=== PATIENT | male | born 1985 | race Caucasian/White ===

== ENCOUNTER 2017-02-22 13:33 | Inpatient (IN) | payer MEDICAID, OTHER ==
[2017-02-23] MEDS ORDERED: MAGNESIUM HYDROXIDE 30 ML UDCUP PO PRN (18:30)
[2017-02-23] MEDS ORDERED: ACETAMINOPHEN 325 MG TAB PO PRN (18:30)
[2017-02-23] MEDS ORDERED: NICOTINE POLACRILEX 2 MG GUM B PRN (18:30)
[2017-02-23] MEDS ORDERED: MAG HYDROX/AL HYDROX/SIMETH 30 ML UDCUP PO PRN (18:30)
--- NOTE | 2017-02-23 18:53 | PDCONSULT ---
Route Inspector Note: Full dictated report to follow tomarrow. Met with Pt for 60 minutes, reviewed his chart from [facility] and consulted with his RN. Reviewed H and P, EKG and labs from [facility]. Reviewed Dr Hassan's first opinion letter and appreciate, per his note, that pts outpt provider, Sophie Martínez NP agrees with ECT. Pt dealing with treatment resistant, severe Bipolar I depression with anhedonia , apathy, anergia, hypersomnia, anorexia, psychomotor slowing, blunting of affect, impov speech, hopelessnss and serious SI, with recent, near lethat OD on tylenol with ICU stay. Not responding to aggressive polypharmacy including LI, LMT, Vraylar. COuld not tolerate seroquel. His acuity and treatment resistance translate to the need for the more robust and expedient effects of ECT. Selene Angel, RN provided psychoed to , wicho re need for 24/7 supervision for any part of acute phase done as outpt. Will check some "organic labs". Pt denies THC and opiate use, despite UDS results. Went through consenting process fully including R/B/As. Pt aware of mortality risk, nuisance SEs and cognitive impact of ECT (will detail more in dictated report). He is able to provide meaningful consent and wishes to start RUL ECT tomorrow. We will hold Li for duration of acute phase and reduce LMT to 50-100 mg. He does not wish prn. Will keep vraylar (if pt brought his own, or MD may be able to provide samples) and doxepin for sleep.
[2017-02-23 20:58] LABS: HEMOGLOBIN A1C 5.2 % (4.0-6.0)
[2017-02-23] MEDS ORDERED: lamoTRIgine 100 MG TAB PO SCH (21:00)
[2017-02-23] MEDS: DOXEPIN HCL 10 MG CAP PO SCH (21:23)
[2017-02-24] MEDS ORDERED: NS 1,000 ML IV ONE (04:00)
[2017-02-24] MEDS ORDERED: LIDOCAINE 2% 5 ML SDV ID ONE (04:00)
[2017-02-24] MEDS ORDERED: CITRIC ACID/SODIUM CITRATE 30 ML UDCUP PO ONE (04:00)
[2017-02-24] MEDS ORDERED: ONDANSETRON DISINTEGRATING 4 MG TAB PO ONE (04:00)
[2017-02-24] MEDS ORDERED: fentaNYL 100 MCG/2 ML INJ ONE (06:02)
[2017-02-24] MEDS ORDERED: GLYCOPYRROLATE 0.2 MG/1 ML VIAL ONE (06:03)
[2017-02-24] MEDS ORDERED: ONDANSETRON 4 MG/2 ML VIAL ONE (06:03)
[2017-02-24] MEDS ORDERED: ETOMIDATE 20 MG/10 ML VIAL ONE (06:03)
[2017-02-24] MEDS ORDERED: MIDAZOLAM 2 MG/2 ML VIAL ONE (06:03)
[2017-02-24] MEDS ORDERED: KETOROLAC 30 MG/1 ML SDV ONE (06:03)
[2017-02-24] MEDS ORDERED: SUCCINYLCHOLINE CHLORIDE 200 MG/10 ML VIAL ONE (06:04)
[2017-02-24] MEDS ORDERED: ROCURONIUM 50 MG/5 ML VIAL ONE (06:04)
[2017-02-24 08:16] LABS: HIGHLY SENSITIVE CRP 3.5 mg/L
[2017-02-24] MEDS ORDERED: CARIPRAZINE 3 MG PO SCH (09:00)
[2017-02-24] MEDS ORDERED: CHOLECALCIFEROL VIT D3 1,000 UNITS TAB PO SCH (09:00)
--- NOTE | 2017-02-24 10:14 | BAPA ---
[f rep st] ADMISSION PSYCHIATRIC ASSESSMENT IDENTIFYING DATA: The patient is a 31-year-old white male, presently living with his an d 4 children. He was referred from [facility] by psychiatrist Berhane Hassan MD, who is referring h for electroconvulsive therapy. His outpatient psychiatric provider is Sophie Farrar NP, who also endorses this treatment for this patient. 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 He has a few recent psychiatric hospitalizati ons. Source of information includes the patient himself, who is a fairly good historian, as well as review of his chart notes from [facility] and the first opinion letter from Dr. Hassan. HISTORY OF PRESENT ILLNESS: This patient has a long history of bipolar 1 illness that started in his late teens, and has been punctuated mostly with severe manic episodes requiring hospitalizations and some fairly sustained periods of euthymia, as well. He had historically rarely gotten depressed. [facility] this summer he was clearly in a manic state, and then for the first time crashed into a profo und depression, leading to this present state. He had 1 very serious suicide attempt recently, attem pting to overdose with Tylenol and ended up in the ICU. He thankfully has no lasting hepatotoxicity. He had other plans to kill himself in violent ways. His present symptoms include anergia, amotivat ion, anhedonia, hypersomnia, loss of appetite with weight loss, Nihilistic rumination, psychomotor sl owing, poor concentration and short-term memory, hopelessness and ultimately suicidal ideation with o ngoing intent. He does state he was able to remain safe while inpatient, but his corroborates t hat he would not be safe presently as an outpatient. He denies any dali psychotic symptoms. There is no significant mixed symptomatology at this point as well. PRESENT MEDICATIONS: Include: Vraylar 3 mg q.a.m., doxepin 10 mg p.o. q.h.s., Lamictal 100 mg p.o. b.i.d., and lithium ER 300 mg in the morning and 600 mg at h.s. He felt he had some partial success from the Vraylar, but his insurance would not cover it, so his compliance with the medication was patricia dequate. He had been restarted on this medication, nonetheless, while at [facility]. Labs, EKG, and history and physical were done at [facility] and provide no relative contraindicat ions to proceeding with ECT. Of note, his urine drug screen showed positive THC and opiates, which t he patient adamantly denied were true as he has never used those substances. There is no alcohol mis use that could be contributing to this present depression. He has not had thyroid tested in a while. PAST PSYCHIATRIC HISTORY,: The patient had his first manic episode at 17 years old. He has gone thr ough long periods of time euthymic without even medications, such as from 2008 through approximately 4 months ago. He has never needed to be on antidepressants as stated originally, or stated in the HP as he hardly has had depressive episodes in the past. Other medications tried have included Abilify and Seroquel. The patient has also filled out a list of all medications tried previously, which daljit l be in his chart. PAST MEDICAL HISTORY: The patient suffers with mild back pain. Otherwise, he has no cardiac or pulm onary issues. No neurologic issues such as closed head injury with loss of consciousness, stroke or TIA. No focal neurologic symptoms or paresthesias. He does have 1 area of numbness on his right hema ek that he notes has been there ever since his Tylenol overdose. He has no known drug allergies. No history of known sleep apnea or GERD. His vitamin D level just tested was low at 18. Hemoglobin A1 c was 5.2, and highly sensitive C-reactive protein was mildly high at 3.5. ALCOHOL AND DRUG HISTORY: The patient admits to rare use of alcohol, but no other illicit substances . FAMILY HISTORY: The patient does have a sister with bipolar illness. There is also a family history of anxiety symptoms. A sister also has illicit substance use. No family history of completed suici de. 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 There is also the economic stressors around his family to t he point where he is unable to pay for medication that has been at least partially helpful. He smoke s 1 pack per day since he was 14 years old. MENTAL STATUS EXAM: The patient is a 31-year-old white male, who appears stated age. He is pleasant and cooperative although quite blunted in affect, quiet and impoverished in speech, which is also mo notone. He makes decent eye contact. His hygiene and grooming are fair and consistent with having blanquita kay transferred from another inpatient setting. His affect is appropriate and congruent with mood, w jorge ah is highly depressed. Thought processes are goal directed. Thought content is positive for suic idal ideation with ongoing intent and significant hopelessness, as well as nihilistic, self-deprecati ng, and guilt ridden rumination. He denies auditory or visual hallucinations, paranoia, somatic delu sions, grandiosity, or delusional degree of nihilism. He is alert and oriented x3 with subjective im pairment in attention, concentration and focus. He is of average intelligence based on vocabulary, a nd educational attainment. Judgment and insight are impaired by virtue of his profound depression, a nd insight is fair. ADMITTING DIAGNOSIS: Anthony I: Bipolar 1 disorder, depressed, severe. Anthony II: Defer. Anthony III: Low vitamin D, back pain. Anthony IV: Moderate. Anthony V: 35. IMPRESSION/RECOMMENDATIONS: I agree with Dr. Hassan and Sophie Farrar that this patient is suffering wi th a significant episode of bipolar depression that is proving refractory to aggressive and appropria te medication management, and has ongoing severe acuity in the form of suicidal ideation with intent. He has a recent very severe suicide attempt. Without more aggressive remediation of his depression , his present episode may indeed prove lethal. Hence ECT is quite appropriate for him at this time. In terms of medication management, we will need to stop his lithium going into treatment and reduce Lamictal with the intent to restart both at his usual doses upon completion of the acute phase. One medication option for the future that may be tried for this patient, but like Vraylar may be poorly c overed by his insurance, would be Latuda given its FDA approval in bipolar depression. I would le nue to avoid antidepressants in a patient who has predominant manic component to his bipolar illness. Bright light therapy used in the new protocol for bipolar depression may be useful to implement in the future if need be. Otherwise, the patient was given extensive verbal, written, and Internet-based references in the serv ice of providing psychoeducation about ECT and its risks, benefits and alternatives. We discussed APA based guidelines for being a candidate for this procedure including factors such as acuity, treatment resistance, patient preference, the risk of inaction or inadequate action, (i.e. mo rbidity or mortality from suicidality if under treated). Alternative treatments such as further med trials, TMS, or psychotherapies were discussed. STAR*D da ta was used to inform this medical decision making process comparing relative remission rates with fu rther med trials in a treatment resistant cohort with remission and response rates using ECT in treat ment resistant depression. The risks were highlighted, including mortality from anesthesia, SC, arrhythmia, or CVA. Common nuis ance side effects were discussed including headache, nausea, jaw pain, and muscle aches. Cognitive side effects were discussed extensively, both verbally and with written handout. This incl uded the potential for anterograde and retrograde amnesia, transient delirium, "hypofrontality" with abulia and slowed processing speed, a sense of derealization or depersonalization. "State dependent" memory issues were discussed as a form of remote memory effect that may be more function of one's claudy y improvement than the side effect of ECT itself. Again, all these risks and side effects were paty vero against the risks using alternative or status quo treatment. We discussed right unilateral versus bilateral ECT, and the pros and cons of trying ketamine as anest hetic agent with its putative antidepressant effects and reduction of cognitive side effects. Ketami ne has increased nausea, longer sedative effect post ECT, and simply the unknown of using it 3 times a week. I suggest we do not start with ketamine, but rather hold off until such time as it may prove necessary if there is a plateauing of treatment effect. Treatment course is 6-18 ECT treatments done 3 times per week. He understands that right unilateral treatments will take longer to complete than bilateral, and up to 50% of our patients who start with unilateral switch at some point to bilateral due to inadequate or slow response. It was our choice a lso to start with unilateral in this patient. Maintenance ECT was discussed as beneficial to reduce relapse risk when used with medications, rather than either modality alone or of course neither modality given its 85% relapse risk in the 3 months following acute ECT and those who responded initially. We discussed the need for outpatient supervision once discharged if the patient is still receiving ac hemalatha ECT at that time, and for up to 2 weeks beyond that. He is not to drive either and he must allow his medications to be managed by his loved ones. The patient was given a list of resources in our c linic including the name and number of Selene Churchill RN, who will provide logistics about treatment fo r him and family. He also knows about Sheila Ontiveros, a therapist, who provides supportive care for pa tients and family members. All the above was accomplished using language understood to patient and family with ample opportunity given to answer questions and express concerns. It was encouraged that after reviewing the written information given, that they consult with me if they wish further discussion. /[id number]/MODL
[2017-02-24] MEDS ORDERED: ONDANSETRON DISINTEGRATING 4 MG TAB ONE ×2 (12:24→13:43)
[2017-02-24] MEDS ORDERED: CITRIC ACID/SODIUM CITRATE 30 ML UDCUP ONE (12:25)
[2017-02-24] MEDS ORDERED: HYDROCODONE/APAP 5/325 TAB PO PRN (13:00)
[2017-02-24] MEDS ORDERED: PROMETHAZINE HCL 25 MG TAB PO PRN (13:00)
[2017-02-24] MEDS ORDERED: ONDANSETRON DISINTEGRATING 4 MG TAB PO PRN (13:00)
[2017-02-24] MEDS ORDERED: IBUPROFEN 600 MG TAB PO PRN (13:00)
[2017-02-24] MEDS ORDERED: HYDROCODONE/APAP 5/325 TAB ONE (13:43)
[2017-02-24] MEDS: CHOLECALCIFEROL VIT D3 2,000 UNITS TAB/CAP PO SCH (14:28)
[2017-02-24] MEDS: lamoTRIgine 100 MG TAB PO SCH (20:23)
[2017-02-24] MEDS: DOXEPIN HCL 10 MG CAP PO SCH (20:23)
[2017-02-25] MEDS: CHOLECALCIFEROL VIT D3 2,000 UNITS TAB/CAP PO SCH (08:30)
[2017-02-25] MEDS: CARIPRAZINE 3 MG PO SCH (08:31)
[2017-02-25] MEDS ORDERED: CARIPRAZINE 3 MG PO SCH (09:00)
--- NOTE | 2017-02-25 15:25 | SOAPPROG ---
SOAP Progress Note Assessment/Plan: Assessment: Bipolar I, depressed, severe Plan: 02/25/17 15:19 Pt interviewed while in bed in middle of afternoon, resting, isolating. Had minimal DICKEY and nausea.No muscle pain/jaw pain. [place] a transient lift of his mood. However, he is back to feeling dyphoric, hopeless and with SI today. Restless sleep. Poor appetite. PMR. Impov speech, blunted affect, No psychosis. Tolerating med changes without discernable SEs. Plan to cont acute RUL ECT while inpt for now. Pt still represents a real and imminent risk for self harm Objective: Vital Signs Temp Pulse Resp BP Pulse Ox 36.9 C 64 14 111/53 L 96 02/25/17 06:00 02/25/17 06:00 02/25/17 06:00 02/25/17 06:00 02/25/17 06:00 ICD10 Worksheet Patient Problems: Problems Problem Status Onset Bipolar 1 disorder, depressed, severe Acute
[2017-02-25] MEDS: DOXEPIN HCL 10 MG CAP PO SCH (17:22)
[2017-02-25] MEDS: lamoTRIgine 100 MG TAB PO SCH (17:22)
--- NOTE | 2017-02-25 18:27 | BCON ---
[f rep ] BEHAVIORAL HEALTH CONSULTATION INTERNAL MEDICINE CONSULTATION DATE OF CONSULTATION: 02/25/2017 REFERRING PHYSICIAN: Dr. Stauffer REASON FOR REFERRAL: Medical clearance for inpatient behavioral health stay. HISTORY OF PRESENT ILLNESS: This patient had a recent suicide attempt earlier this month. He had a hospitalization at [facility] and due to inadequate response to therapies there, he was transferred to [facility] for electroconvulsive therapy. He currently has no acute complaints. PAST MEDICAL HISTORY: Bipolar disorder. PAST SURGICAL HISTORY: He reports wisdom teeth extraction. MEDICATIONS: Prior to admission: 1. Lamotrigine 100 mg p.o. twice daily. 2. Tracy 600 mg p.o. daily at 1800. 3. Cariprazine 3 mg p.o. daily. 4. Tracy 300 mg daily in the morning. 5. Doxepin 10 mg p.o. at bedtime. ALLERGIES: There are no known drug allergies. SOCIAL HISTORY: He is . He lives with his and 4 children. He is a home care nurse. He is a tobacco smoker. FAMILY HISTORY: He reports his father has prediabetes and a sister has bipolar disorder. REVIEW OF SYSTEMS: He reports he had a reduced appetite and also had nausea and vomiting over the past several weeks. The appetite issues were related to depression, and the nausea and vomiting due to an overdose on Tylenol PM, for which he was hospitalized. These symptoms have resolved. He now has a normal appetite and no nausea or vomiting. No constipation or diarrhea. He is not in pain. He has no cough. He has no dyspnea. Otherwise, a 10-point review of systems is negative. PHYSICAL EXAM: VITAL SIGNS: Blood pressure is 111/53, heart rate is 64, respiratory rate is 14, oxygen saturation 96%. Temperature is 36.9 degrees centigrade. His weight is 88.5 kg for a body mass index of 24.4. GENERAL: This is a well-nourished, well-developed man, resting in bed, cooperative, and in no acute distress. HEENT: Extraocular movements are intact. Pupils are equal, round, reactive to light. Mucous membranes are moist. Dentition is in good condition. NECK: Supple. HEART: Regular rate and rhythm with no murmurs , rubs, or gallops. LUNGS: Clear to auscultation bilaterally. ABDOMEN: Benign. EXTREMITIES: There is no cyanosis, clubbing, or edema. NEUROLOGIC: He is alert and oriented x3. Cranial nerves 2-12 are grossly intact. There is no focal weakness. Sensation is intact to light touch. LABORATORY STUDIES: Drawn at [facility] on 02/17/2017, revealed BMP overall within normal limits. Liver functions revealed a slightly elevated AST at 76. There was a lipid panel done which revealed an elevated LDL at 109. Laboratories drawn at [facility] showed a hemoglobin A1c of 5.2 , a CRP of 3.5, a B12 level of 498, and a vitamin D level of 18. ASSESSMENT/RECOMMENDATIONS: 1. Mental health issues, pending further evaluation per Psychiatry and the mental health team. 2. Tobacco dependence syndrome. He was encouraged regarding smoking cessation. 3. Dyslipidemia is mild. He is a smoker, however, with his young age and lack of hypertension, he would not meet criteria for initiation of a statin therapy. Encourage dietary compliance and increased exercise. 4. Vitamin D deficiency. He is getting vitamin D replacement as appropriate. I see no medical contraindications to this patient's continued stay on the inpatient behavioral health unit or to any psychiatric medications or procedures. Thank you very much for including me in the care of this patient. Please do not hesitate to contact me or the hospitalist service should there be need for further medical evaluation. /[id number]/MODL MTDD
[2017-02-26] MEDS ORDERED: LIDOCAINE 2% 5 ML SDV ID ONE (04:00)
[2017-02-26] MEDS ORDERED: ONDANSETRON DISINTEGRATING 4 MG TAB PO ONE (04:00)
[2017-02-26] MEDS ORDERED: NS 1,000 ML IV ONE (04:00)
[2017-02-26] MEDS ORDERED: CITRIC ACID/SODIUM CITRATE 30 ML UDCUP PO ONE (04:00)
[2017-02-26] MEDS ORDERED: MIDAZOLAM 2 MG/2 ML VIAL ONE (04:52)
[2017-02-26] MEDS ORDERED: fentaNYL 100 MCG/2 ML INJ ONE (04:52)
[2017-02-26] MEDS ORDERED: PROPOFOL 200 MG/20 ML VIAL ONE (04:53)
[2017-02-26] MEDS ORDERED: ROCURONIUM 50 MG/5 ML VIAL ONE (04:53)
[2017-02-26] MEDS ORDERED: KETOROLAC 30 MG/1 ML SDV ONE (04:53)
[2017-02-26] MEDS ORDERED: ETOMIDATE 20 MG/10 ML VIAL ONE (04:53)
[2017-02-26] MEDS ORDERED: SUCCINYLCHOLINE CHLORIDE 200 MG/10 ML VIAL ONE (04:53)
[2017-02-26] MEDS ORDERED: GLYCOPYRROLATE 0.2 MG/1 ML VIAL ONE (04:53)
[2017-02-26] MEDS ORDERED: ONDANSETRON 4 MG/2 ML VIAL ONE (04:53)
[2017-02-26] MEDS ORDERED: ONDANSETRON DISINTEGRATING 4 MG TAB ONE (07:14)
[2017-02-26] MEDS ORDERED: CITRIC ACID/SODIUM CITRATE 30 ML UDCUP ONE (07:14)
[2017-02-26] MEDS ORDERED: ONDANSETRON DISINTEGRATING 4 MG TAB PO PRN (07:23)
[2017-02-26] MEDS ORDERED: PROMETHAZINE HCL 25 MG TAB PO PRN (07:23)
[2017-02-26] MEDS ORDERED: HYDROCODONE/APAP 5/325 TAB PO PRN (07:23)
--- NOTE | 2017-02-26 07:50 | SOAPPROG ---
SOAP Progress Note Assessment/Plan: Assessment: Bipolar I, depressed, severe Plan: 02/25/17 15:19 Pt interviewed while in bed in middle of afternoon, resting, isolating. Had minimal DICKEY and nausea.No muscle pain/jaw pain. [place] a transient lift of his mood. However, he is back to feeling dyphoric, hopeless and with SI today. Restless sleep. Poor appetite. PMR. Impov speech, blunted affect, No psychosis. Tolerating med changes without discernable SEs. Plan to cont acute RUL ECT while inpt for now. Pt still represents a real and imminent risk for self harm 02/26/17 07:47 Pt interviewed prior to ECT today. He describes no change in mood status compared to yesterday. QIDS is however 2 points lower and our staff appreciates a small, objective change in affect that is positive. Will cont acute ECT. Will add propofol and increase IV zofran due to c/o of Nausea. Will utilize fiberous food, water and metamucil to address absence of bowel movement since admit. Objective: Vital Signs Temp Pulse Resp BP Pulse Ox 36.9 C 91 16 123/77 H 93 02/26/17 06:00 02/26/17 06:00 02/26/17 06:00 02/26/17 06:00 02/26/17 06:00 ICD10 Worksheet Patient Problems: Problems Problem Status Onset Bipolar 1 disorder, depressed, severe Acute
[2017-02-26] MEDS ORDERED: HYDROCODONE/APAP 5/325 TAB ONE (08:24)
[2017-02-26] MEDS: PSYLLIUM METAMUCIL 1 PKT PO SCH (10:25)
[2017-02-26] MEDS: CHOLECALCIFEROL VIT D3 2,000 UNITS TAB/CAP PO SCH (10:26)
[2017-02-26] MEDS: CARIPRAZINE 3 MG PO SCH (10:26)
[2017-02-26] MEDS: DOXEPIN HCL 10 MG CAP PO SCH (19:33)
[2017-02-26] MEDS: lamoTRIgine 100 MG TAB PO SCH (19:33)
[2017-02-27] MEDS: CHOLECALCIFEROL VIT D3 2,000 UNITS TAB/CAP PO SCH (10:00)
[2017-02-27] MEDS: PSYLLIUM METAMUCIL 1 PKT PO SCH (10:01)
[2017-02-27] MEDS: CARIPRAZINE 3 MG PO SCH (10:08)
--- NOTE | 2017-02-27 13:43 | SOAPPROG ---
SOAP Progress Note Assessment/Plan: Assessment: From Dr. Stauffer's note: Assessment: Bipolar I, depressed, severe Plan: 02/25/17 15:19 Pt interviewed while in bed in middle of afternoon, resting, isolating. Had minimal DICKEY and nausea.No muscle pain/jaw pain. [place] a transient lift of his mood. However, he is back to feeling dyphoric, hopeless and with SI today. Restless sleep. Poor appetite. PMR. Impov speech, blunted affect, No psychosis. Tolerating med changes without discernable SEs. Plan to cont acute RUL ECT while inpt for now. Pt still represents a real and imminent risk for self harm 02/26/17 07:47 Pt interviewed prior to ECT today. He describes no change in mood status compared to yesterday. QIDS is however 2 points lower and our staff appreciates a small, objective change in affect that is positive. Will cont acute ECT. Will add propofol and increase IV zofran due to c/o of Nausea. Will utilize fiberous food, water and metamucil to address absence of bowel movement since admit. 02/27/17 13:38 1. Patient presents with brighter affect than noted for past 2 days. 2. Patient c/o vomiting last night. He says this happened when he was at [facility] usually in evenings after his HS dose of meds. Asked patient to alert staff when he vomits, which he didn't do last night. 3. Will request hospitalist consult. Subjective: Met with patient, reviewed chart and d/w staff. Patient is lying in bed napping. He says he has been out of bed earlier. He denies any physical complaints, but says he vomited last night but did not tell staff until this AM. He says he vomited several times while at [facility] usually after taking his HS meds. He denies feeling sick or nauseous today. He says he feels "good" since ECT started, even though Dr. Stauffer noted patient reported feeling sad and depressed. Patient says he thinks his mood is improving. He denies any SI/ HI. Objective: Vital Signs Temp Pulse Resp BP Pulse Ox 36.8 C 71 12 120/62 94 02/27/17 06:00 02/27/17 06:00 02/27/17 06:00 02/27/17 06:00 02/27/17 06:00 MSE: Affect: Euthymic Mood: "Good" TP: Linear, goal-directed TC: Denies any SI/HI Insight/Judgment: Fair - Time Spent With Patient Time Spent With Patient: 20" - Pending Discharge Pending Discharge Within 24 Hours: No Pending Discharge Within 48 Hours: No ICD10 Worksheet Patient Problems: Problems Problem Status Onset Bipolar 1 disorder, depressed, severe Acute
[2017-02-27] MEDS: lamoTRIgine 100 MG TAB PO SCH (20:50)
[2017-02-27] MEDS: DOXEPIN HCL 10 MG CAP PO SCH (20:51)
[2017-02-28] MEDS ORDERED: BISACODYL 10 MG SUPP PR PRN (08:30)
[2017-02-28] MEDS ORDERED: POLYETHYLENE GLYCOL 3350 17 GM PKT PO PRN (08:30)
[2017-02-28] MEDS ORDERED: LACTULOSE 20 GM/30 ML UDCUP PO PRN (08:30)
[2017-02-28] MEDS ORDERED: MAGNESIUM HYDROXIDE 30 ML UDCUP PO PRN (08:30)
[2017-02-28] MEDS ORDERED: PROMETHAZINE HCL 25 MG TAB PO PRN (08:31)
[2017-02-28] MEDS ORDERED: ONDANSETRON DISINTEGRATING 4 MG TAB PO PRN (08:31)
[2017-02-28] MEDS: CHOLECALCIFEROL VIT D3 2,000 UNITS TAB/CAP PO SCH (08:41)
[2017-02-28] MEDS: PSYLLIUM METAMUCIL 1 PKT PO SCH (09:50)
[2017-02-28] MEDS: SENNOSIDES/DOCUSATE SODIUM TAB PO SCH ×2 (09:50→18:26)
[2017-02-28] MEDS: CARIPRAZINE 3 MG PO SCH (09:51)
--- NOTE | 2017-02-28 12:14 | SOAPPROG ---
SOAP Progress Note Assessment/Plan: Assessment: From Dr. Stauffer's note: Assessment: Bipolar I, depressed, severe Plan: 02/25/17 15:19 Pt interviewed while in bed in middle of afternoon, resting, isolating. Had minimal DICKEY and nausea.No muscle pain/jaw pain. [place] a transient lift of his mood. However, he is back to feeling dyphoric, hopeless and with SI today. Restless sleep. Poor appetite. PMR. Impov speech, blunted affect, No psychosis. Tolerating med changes without discernable SEs. Plan to cont acute RUL ECT while inpt for now. Pt still represents a real and imminent risk for self harm 02/26/17 07:47 Pt interviewed prior to ECT today. He describes no change in mood status compared to yesterday. QIDS is however 2 points lower and our staff appreciates a small, objective change in affect that is positive. Will cont acute ECT. Will add propofol and increase IV zofran due to c/o of Nausea. Will utilize fiberous food, water and metamucil to address absence of bowel movement since admit. 02/27/17 13:38 1. Patient presents with brighter affect than noted for past 2 days. 2. Patient c/o vomiting last night. He says this happened when he was at [facility] usually in evenings after his HS dose of meds. Asked patient to alert staff when he vomits, which he didn't do last night. 3. Will request hospitalist consult. 02/28/17 12:08 1. Appreciate hospitalist, Yoko Tapia, evaluating patient today for constipation and intermittent nighttime vomiting. Dr. Tapia prescribed stool softeners and laxatives PRN as well as Protonix for possible GERD. Patient says he has been treated for GERD in past but has not taken meds recently. 2. Patient feels more "depressed" today b/c "I want to get out of here." 3. CCM 4. ECT tomorrow Subjective: Met with patient, reviewed chart and d/w staff. Patient is dressed in street clothes, seated at his desk. He says he is "tired of being here" and says staying in hospital makes him feel "more depressed." However, when staff asked him to rate his depression prior to admission, he said it was an 8/10, and now it's a 06/05. Patient admits the ECT is "helping" but says "I still want to go home." Patient was seen by hospitalist today for constipation and vomiting. It' s likely that his N/V is related to GERD which he has been treated for in past. He was started on Protonix and anti-nausea meds. Objective: Vital Signs Temp Pulse Resp BP Pulse Ox 36.8 C 65 14 127/63 H 97 02/28/17 06:00 02/28/17 06:00 02/28/17 06:00 02/28/17 06:00 02/28/17 06:00 MSE: Affect: Flat Mood: "Depressed" TP: Linear, goal-directed TC: Denies SI/ HI, no AH/VH Insight/Judgment: Fair - Time Spent With Patient Time Spent With Patient: 20" - Pending Discharge Pending Discharge Within 24 Hours: No Pending Discharge Within 48 Hours: No ICD10 Worksheet Patient Problems: Problems Problem Status Onset Bipolar 1 disorder, depressed, severe Acute
[2017-02-28] MEDS: PANTOPRAZOLE SODIUM 40 MG TAB PO SCH ×2 (12:54→18:24)
--- NOTE | 2017-02-28 15:59 | HOSPPROG ---
Hospitalist Progress Note Assessment/Plan: Asked by Dr. Kessler to re-evaluate patient today regarding night time vomiting. Patient had near lethal tylenol overdose about 1 month ago at [facility], requiring ICU stay. Unclear if he was treated with NAC. Transferred to [facility] from outside psych facility for ECT. Since his overdose he has been experiencing night time vomiting. During the day he eats his meals just fine, without any nausea. He had loose stools after his overdose, but since arriving at [facility] he has been constipated. Last night he had a episode of chest pain, lasting less than an hour. He only gets this chest pain at night when he lies down. He doesn't feel any acid reflux. He also complains of right flank pain. A/P: * Vomiting qhs - I suspect he has an element of GERD, especially with his described postural chest pain. Will start him on empiric PPI and monitor for effect. * Constipation - will place him on bowel protocol. This may also help vomiting. * Chest pain - doubt cardiac. Suspect GI * Right flank pain - will check UA, but think pyelo is unlikely * Recent near lethal tylenol overdose - will recheck labs in am, including liver function Dr. Ray available tomorrow if any further follow-up required Objective: Vital Signs Temp Pulse Resp BP Pulse Ox 36.8 C 65 14 127/63 H 97 02/28/17 06:00 02/28/17 06:00 02/28/17 06:00 02/28/17 06:00 02/28/17 06:00 - Physical Exam Constitutional: no apparent distress, appears nourished, not in pain Cardiovascular: regular rate and rhythym, no murmur, rub, or gallop Respiratory: no respiratory distress, no rales or rhonchi, clear to auscultation Gastrointestinal: normoactive bowel sounds, soft, non-tender abdomen, no palpable masses Skin: no rashes or abrasions, no fluctuance, no induration Neurologic: AAOx3, sensation intact bilaterally Psychiatric: interacting appropriately, not anxious, not encephalopathic, thought process linear ICD10 Worksheet Patient Problems: Problems Problem Status Onset Bipolar 1 disorder, depressed, severe Acute
[2017-02-28] MEDS: DOXEPIN HCL 10 MG CAP PO SCH (18:24)
[2017-03-01] MEDS ORDERED: LIDOCAINE 2% 5 ML SDV ID ONE (04:00)
[2017-03-01] MEDS ORDERED: NS 1,000 ML IV ONE (04:00)
[2017-03-01] MEDS ORDERED: ONDANSETRON DISINTEGRATING 4 MG TAB PO ONE (04:00)
[2017-03-01] MEDS ORDERED: CITRIC ACID/SODIUM CITRATE 30 ML UDCUP PO ONE (04:00)
[2017-03-01] MEDS ORDERED: KETOROLAC 30 MG/1 ML SDV ONE (05:40)
[2017-03-01] MEDS ORDERED: ROCURONIUM 50 MG/5 ML VIAL ONE (05:40)
[2017-03-01] MEDS ORDERED: GLYCOPYRROLATE 0.2 MG/1 ML VIAL ONE (05:40)
[2017-03-01] MEDS ORDERED: ONDANSETRON 4 MG/2 ML VIAL ONE (05:40)
[2017-03-01] MEDS ORDERED: PROPOFOL 200 MG/20 ML VIAL ONE (05:40)
[2017-03-01] MEDS ORDERED: fentaNYL 100 MCG/2 ML INJ ONE (05:40)
[2017-03-01] MEDS ORDERED: SUCCINYLCHOLINE CHLORIDE 200 MG/10 ML VIAL ONE (05:40)
[2017-03-01] MEDS ORDERED: ETOMIDATE 20 MG/10 ML VIAL ONE (05:40)
[2017-03-01] MEDS ORDERED: MIDAZOLAM 2 MG/2 ML VIAL ONE (05:40)
[2017-03-01 07:42] LABS: % IMMATURE GRANULYOCYTES 0.8 % (0.0-1.1); ABSOLUTE IMMATURE GRANULOCYTES 0.06 10^3/uL (0.00-0.10); ADD DIFF? NO; ADD MORPH? NO; ADD SCAN? NO; ATYPICAL LYMPHOCYTE FLAG 0 (0-99); FRAGMENT RBC FLAG 0 (0-99); HEMATOCRIT 51.3 % (40.0-51.0); HEMOGLOBIN 17.2 g/dL (13.7-17.5); LEFT SHIFT FLG 10 (0-99); LIPEMIA HEMOLYSIS FLAG 80 (0-99); MEAN CELL HEMOGLOBIN 30.7 pg (27.9-34.1); MEAN CELL HEMOGLOBIN CONCENTR. 33.5 g/dL (32.4-36.7); MEAN CELL VOLUME 91.4 fL (81.5-99.8); MEAN PLATELET VOLUME 10.7 fL (8.7-11.7); PLATELET CLUMPS FLAG 0 (0-99); PLATELET COUNT 207 10^3/uL (150-400); RED BLOOD CELL COUNT 5.61 10^6/uL (4.40-6.38); RED CELL DISTRIBUTION WIDTH 12.6 % (11.5-15.2)
[2017-03-01 08:05] LABS: INR 0.94 (0.83-1.16); PROTIME(PATIENT) 12.8 SEC (12.0-15.0)
[2017-03-01 08:56] LABS: ALANINE AMINOTRANSFERASE 54 IU/L (21-72); ALKALINE PHOSPHATASE 90 IU/L (38-126); ANION GAP 15 mEq/L (8-16); ASPARTATE AMINOTRANSFERASE 25 IU/L (17-59); BILIRUBIN,TOTAL 0.5 mg/dL (0.1-1.4); BILIRUBIN-CONJUGATED 0.2 mg/dL (0.0-0.5); BILIRUBIN-UNCONJUGATED 0.3 mg/dL (0.0-1.1); CALCIUM 10.1 mg/dL (8.5-10.4); CARBON DIOXIDE 26 mEq/l (22-31); CHLORIDE 102 mEq/L (97-110); CREATININE 0.9 mg/dL (0.7-1.3); GLOMERULAR FILTRATION RATE > 60; GLUCOSE 83 mg/dL (70-100); POTASSIUM 4.8 mEq/L (3.5-5.2); SODIUM 143 mEq/L (134-144); TOTAL PROTEIN 6.8 g/dL (6.3-8.2)
[2017-03-01] MEDS ORDERED: ONDANSETRON DISINTEGRATING 4 MG TAB ONE (09:06)
[2017-03-01] MEDS ORDERED: CITRIC ACID/SODIUM CITRATE 30 ML UDCUP ONE (09:06)
[2017-03-01] MEDS ORDERED: PROMETHAZINE HCL 25 MG TAB PO PRN (10:06)
[2017-03-01] MEDS ORDERED: HYDROCODONE/APAP 5/325 TAB PO PRN (10:06)
--- NOTE | 2017-03-01 10:18 | SOAPPROG ---
SOAP Progress Note Assessment/Plan: Assessment: Bipolar I, depressed, severe Plan: 02/25/17 15:19 Pt interviewed while in bed in middle of afternoon, resting, isolating. Had minimal DICKEY and nausea.No muscle pain/jaw pain. [place] a transient lift of his mood. However, he is back to feeling dyphoric, hopeless and with SI today. Restless sleep. Poor appetite. PMR. Impov speech, blunted affect, No psychosis. Tolerating med changes without discernable SEs. Plan to cont acute RUL ECT while inpt for now. Pt still represents a real and imminent risk for self harm 02/26/17 07:47 Pt interviewed prior to ECT today. He describes no change in mood status compared to yesterday. QIDS is however 2 points lower and our staff appreciates a small, objective change in affect that is positive. Will cont acute ECT. Will add propofol and increase IV zofran due to c/o of Nausea. Will utilize fiberous food, water and metamucil to address absence of bowel movement since admit. 03/01/17 10:10 Reviewed weekend notes of MDs, hospitalist, CC, RNs. Reviewed labs. Spoke with patient and called , Zo, this am. Pt wishes to be discharged. His QIDS score is a bit lower and he is denying suicidal intent AT THIS TIME, but acknowledges that he really does not know whether he is feeling better, as he is in the artificial environment of the hospital milieu. furthermore states that "he does not sound any better...he's quiet and spending all his day in bed...". I will strongly recommend that we delay discharge at this time as his risk of self harm, prior to admission to [facility], was extremely high as evidenced by his near lethal SA. Indeed, over the weekend, the hospitalist had to intervene due to nocturnal emesis felt to possibly be a function of GI issues from his OD. Thankfully, the PPI Rx'ed is helping that symptom. 's observations and even intuition about him, and her degree of skepticism about his stated absence of SI, are important variables that should not be discounted. Objectively, pt remains quiet, impov in speech, with PMR, able to force smiles. Denies present SI, but acknowledges he does not know how he might feel outside hospital. Objective: Vital Signs Temp Pulse Resp BP Pulse Ox 36.9 C 89 16 109/61 97 03/01/17 06:00 03/01/17 06:00 03/01/17 06:00 03/01/17 06:00 03/01/17 06:00 Laboratory Results 03/01/17 06:20 03/01/17 06:20 PT 12.8 SEC (12.0-15.0) 03/01/17 06:20 INR 0.94 (0.83-1.16) 03/01/17 06:20 Laboratory Tests 02/23/17 02/23/17 03/01/17 19:50 19:50 06:20 Hgb 17.2 Hct 51.3 H Sodium Potassium Hemoglobin A1c 5.2 Total Bilirubin Conjugated Bilirubin Unconjugated Bilirubin AST ALT C-React Prot High Sens 3.5 Lipase 25-OH Vitamin D Total 18.0 L TSH 03/01/17 06:20 Hgb Hct Sodium 143 Potassium 4.8 Hemoglobin A1c Total Bilirubin 0.5 Conjugated Bilirubin 0.2 Unconjugated Bilirubin 0.3 AST 25 ALT 54 C-React Prot High Sens Lipase 70 25-OH Vitamin D Total TSH 2.150 ICD10 Worksheet Patient Problems: Problems Problem Status Onset Bipolar 1 disorder, depressed, severe Acute
[2017-03-01] MEDS: CHOLECALCIFEROL VIT D3 2,000 UNITS TAB/CAP PO SCH (12:10)
[2017-03-01] MEDS: PANTOPRAZOLE SODIUM 40 MG TAB PO SCH ×2 (12:11→20:01)
[2017-03-01] MEDS: CARIPRAZINE 3 MG PO SCH (12:11)
[2017-03-01] MEDS: PSYLLIUM METAMUCIL 1 PKT PO SCH (13:13)
[2017-03-01] MEDS: SENNOSIDES/DOCUSATE SODIUM TAB PO SCH ×2 (13:13→20:02)
[2017-03-01] MEDS: DOXEPIN HCL 10 MG CAP PO SCH (20:01)
[2017-03-01] MEDS: lamoTRIgine 100 MG TAB PO SCH (20:01)
[2017-03-02] MEDS: CARIPRAZINE 3 MG PO SCH (08:44)
[2017-03-02] MEDS: SENNOSIDES/DOCUSATE SODIUM TAB PO SCH ×2 (08:45→21:12)
[2017-03-02] MEDS: PSYLLIUM METAMUCIL 1 PKT PO SCH (08:45)
[2017-03-02] MEDS: PANTOPRAZOLE SODIUM 40 MG TAB PO SCH ×2 (08:46→21:15)
[2017-03-02] MEDS: CHOLECALCIFEROL VIT D3 2,000 UNITS TAB/CAP PO SCH (08:46)
--- NOTE | 2017-03-02 14:57 | SOAPPROG ---
SOAP Progress Note Assessment/Plan: Assessment: Bipolar I, depressed, severe Plan: 02/25/17 15:19 Pt interviewed while in bed in middle of afternoon, resting, isolating. Had minimal DICKEY and nausea.No muscle pain/jaw pain. [place] a transient lift of his mood. However, he is back to feeling dyphoric, hopeless and with SI today. Restless sleep. Poor appetite. PMR. Impov speech, blunted affect, No psychosis. Tolerating med changes without discernable SEs. Plan to cont acute RUL ECT while inpt for now. Pt still represents a real and imminent risk for self harm 02/26/17 07:47 Pt interviewed prior to ECT today. He describes no change in mood status compared to yesterday. QIDS is however 2 points lower and our staff appreciates a small, objective change in affect that is positive. Will cont acute ECT. Will add propofol and increase IV zofran due to c/o of Nausea. Will utilize fiberous food, water and metamucil to address absence of bowel movement since admit. 03/01/17 10:10 Reviewed weekend notes of MDs, hospitalist, CC, RNs. Reviewed labs. Spoke with patient and called , Zo, this am. Pt wishes to be discharged. His QIDS score is a bit lower and he is denying suicidal intent AT THIS TIME, but acknowledges that he really does not know whether he is feeling better, as he is in the artificial environment of the hospital milieu. furthermore states that "he does not sound any better...he's quiet and spending all his day in bed...". I will strongly recommend that we delay discharge at this time as his risk of self harm, prior to admission to [facility], was extremely high as evidenced by his near lethal SA. Indeed, over the weekend, the hospitalist had to intervene due to nocturnal emesis felt to possibly be a function of GI issues from his OD. Thankfully, the PPI Rx'ed is helping that symptom. 's observations and even intuition about him, and her degree of skepticism about his stated absence of SI, are important variables that should not be discounted. Objectively, pt remains quiet, impov in speech, with PMR, able to force smiles. Denies present SI, but acknowledges he does not know how he might feel outside hospital. 03/02/17 14:52 Met with pt, spoke with CC and RN. Pt feels subtle, at best, improvement in mood. Objectively, a bit brighter, slightly more verbal, better eye contact, and denies present SI. However, he feels hospital setting is artificial and not allowing his full appraisal of mood change. He does endorse some future orientation and I believe he is truthful in his denial of SI, but he has limited insight into how Bipolar depression can affect him, and how it can have some waxing and waning in its intensity, with the potential to return fairly quickly to a state in which he becomes suicidal. Hence, whenever he is d/c'ed, family member who will providing 19/10 supervision must be vigilant abou that and limit his access to any implements of self harm, including any meds, Rxed or OTC, firearms or sharps. No driving allowed either until at least two weeks after last acute ECT. Constipation is resolved as is nocturnal nausea. Objective: Vital Signs Temp Pulse Resp BP Pulse Ox 36.8 C 63 16 106/61 98 03/02/17 06:00 03/02/17 06:00 03/02/17 06:00 03/02/17 06:00 03/02/17 06:00 Laboratory Results 03/01/17 06:20 03/01/17 06:20 PT 12.8 SEC (12.0-15.0) 03/01/17 06:20 INR 0.94 (0.83-1.16) 03/01/17 06:20 ICD10 Worksheet Patient Problems: Problems Problem Status Onset Bipolar 1 disorder, depressed, severe Acute
[2017-03-02] MEDS: DOXEPIN HCL 10 MG CAP PO SCH (21:14)
[2017-03-03] MEDS ORDERED: LIDOCAINE 2% 5 ML SDV ID ONE (04:00)
[2017-03-03] MEDS ORDERED: ONDANSETRON DISINTEGRATING 4 MG TAB PO ONE (04:00)
[2017-03-03] MEDS ORDERED: CITRIC ACID/SODIUM CITRATE 30 ML UDCUP PO ONE (04:00)
[2017-03-03] MEDS ORDERED: NS 1,000 ML IV ONE (04:00)
[2017-03-03] MEDS ORDERED: fentaNYL 100 MCG/2 ML INJ ONE (05:27)
[2017-03-03] MEDS ORDERED: ONDANSETRON 4 MG/2 ML VIAL ONE (05:27)
[2017-03-03] MEDS ORDERED: PROPOFOL 200 MG/20 ML VIAL ONE (05:27)
[2017-03-03] MEDS ORDERED: GLYCOPYRROLATE 0.2 MG/1 ML VIAL ONE (05:27)
[2017-03-03] MEDS ORDERED: ETOMIDATE 20 MG/10 ML VIAL ONE (05:27)
[2017-03-03] MEDS ORDERED: KETOROLAC 30 MG/1 ML SDV ONE (05:27)
[2017-03-03] MEDS ORDERED: MIDAZOLAM 2 MG/2 ML VIAL ONE (05:27)
[2017-03-03] MEDS ORDERED: ROCURONIUM 50 MG/5 ML VIAL ONE (05:27)
[2017-03-03] MEDS ORDERED: SUCCINYLCHOLINE CHLORIDE 200 MG/10 ML VIAL ONE (05:28)
[2017-03-03] MEDS: CHOLECALCIFEROL VIT D3 2,000 UNITS TAB/CAP PO SCH ×2 (07:41→13:22)
[2017-03-03] MEDS: PSYLLIUM METAMUCIL 1 PKT PO SCH (07:42)
[2017-03-03] MEDS: PANTOPRAZOLE SODIUM 40 MG TAB PO SCH ×3 (07:42→20:54)
[2017-03-03] MEDS: SENNOSIDES/DOCUSATE SODIUM TAB PO SCH ×2 (07:43→20:56)
[2017-03-03] MEDS: CARIPRAZINE 3 MG PO SCH ×2 (07:43→13:23)
[2017-03-03] MEDS ORDERED: HYDROCODONE/APAP 5/325 TAB PO PRN (11:59)
--- NOTE | 2017-03-03 13:27 | SOAPPROG ---
SOAP Progress Note Assessment/Plan: Assessment: Bipolar I, depressed, severe Plan: 02/25/17 15:19 Pt interviewed while in bed in middle of afternoon, resting, isolating. Had minimal DICKEY and nausea.No muscle pain/jaw pain. [place] a transient lift of his mood. However, he is back to feeling dyphoric, hopeless and with SI today. Restless sleep. Poor appetite. PMR. Impov speech, blunted affect, No psychosis. Tolerating med changes without discernable SEs. Plan to cont acute RUL ECT while inpt for now. Pt still represents a real and imminent risk for self harm 02/26/17 07:47 Pt interviewed prior to ECT today. He describes no change in mood status compared to yesterday. QIDS is however 2 points lower and our staff appreciates a small, objective change in affect that is positive. Will cont acute ECT. Will add propofol and increase IV zofran due to c/o of Nausea. Will utilize fiberous food, water and metamucil to address absence of bowel movement since admit. 03/01/17 10:10 Reviewed weekend notes of MDs, hospitalist, CC, RNs. Reviewed labs. Spoke with patient and called , Zo, this am. Pt wishes to be discharged. His QIDS score is a bit lower and he is denying suicidal intent AT THIS TIME, but acknowledges that he really does not know whether he is feeling better, as he is in the artificial environment of the hospital milieu. furthermore states that "he does not sound any better...he's quiet and spending all his day in bed...". I will strongly recommend that we delay discharge at this time as his risk of self harm, prior to admission to [facility], was extremely high as evidenced by his near lethal SA. Indeed, over the weekend, the hospitalist had to intervene due to nocturnal emesis felt to possibly be a function of GI issues from his OD. Thankfully, the PPI Rx'ed is helping that symptom. 's observations and even intuition about him, and her degree of skepticism about his stated absence of SI, are important variables that should not be discounted. Objectively, pt remains quiet, impov in speech, with PMR, able to force smiles. Denies present SI, but acknowledges he does not know how he might feel outside hospital. 03/02/17 14:52 Met with pt, spoke with CC and RN. Pt feels subtle, at best, improvement in mood. Objectively, a bit brighter, slightly more verbal, better eye contact, and denies present SI. However, he feels hospital setting is artificial and not allowing his full appraisal of mood change. He does endorse some future orientation and I believe he is truthful in his denial of SI, but he has limited insight into how Bipolar depression can affect him, and how it can have some waxing and waning in its intensity, with the potential to return fairly quickly to a state in which he becomes suicidal. Hence, whenever he is d/c'ed, family member who will providing 19/10 supervision must be vigilant abou that and limit his access to any implements of self harm, including any meds, Rxed or OTC, firearms or sharps. No driving allowed either until at least two weeks after last acute ECT. Constipation is resolved as is nocturnal nausea. 03/03/17 12:41 Spoke with Pt's at length about her assessment of Pt progress. She feels there is little discernable change and she fears he is minimizing his severity in order to agitate for premature discharge. I also believe he simply has limited insight and ability to recall how hopeless he had only recently been ( when he made such as serious SA). Hence, he appears--to --to be willfully manipulating to earn discharge, whereby I believe it is not so clearly a conscious manipulation. (She acknowledges that she is basing her assumptions about his previous manipulations while he had been an in-patient in a MANIC state. She responded to psycho-ed about depression NOT typically leading to such a severe degree of impaired insight as is seen in selin) He does appear objectively a bit brighter to me, but still constricted, impoverished and with PMR. Is attending some groups. No nausea at night. No longer c/o constipation. Will plan to treat in-patient at least through Wednesday and at that time obtain collateral info from and parents about how he is presenting. If all agree that he is finally, more definitively responding, he will likely discharge. Objective: Vital Signs Temp Pulse Resp BP Pulse Ox 36.5 C 72 12 110/56 L 96 03/03/17 12:00 03/03/17 12:10 03/03/17 12:10 03/03/17 12:10 03/03/17 12:21 Laboratory Results 03/01/17 06:20 03/01/17 06:20 PT 12.8 SEC (12.0-15.0) 03/01/17 06:20 INR 0.94 (0.83-1.16) 03/01/17 06:20 ICD10 Worksheet Patient Problems: Problems Problem Status Onset Bipolar 1 disorder, depressed, severe Acute
[2017-03-03] MEDS: DOXEPIN HCL 10 MG CAP PO SCH (20:54)
[2017-03-03] MEDS: lamoTRIgine 100 MG TAB PO SCH (20:54)
[2017-03-04] MEDS: PSYLLIUM METAMUCIL 1 PKT PO SCH (07:43)
[2017-03-04] MEDS: SENNOSIDES/DOCUSATE SODIUM TAB PO SCH ×2 (07:43→21:15)
[2017-03-04] MEDS: CARIPRAZINE 3 MG PO SCH (08:45)
[2017-03-04] MEDS: PANTOPRAZOLE SODIUM 40 MG TAB PO SCH ×2 (08:46→18:35)
[2017-03-04] MEDS: CHOLECALCIFEROL VIT D3 2,000 UNITS TAB/CAP PO SCH (08:46)
--- NOTE | 2017-03-04 14:24 | SOAPPROG ---
SOAP Progress Note Assessment/Plan: Assessment: Bipolar I, depressed, severe Plan: 02/25/17 15:19 Pt interviewed while in bed in middle of afternoon, resting, isolating. Had minimal DICKEY and nausea.No muscle pain/jaw pain. [place] a transient lift of his mood. However, he is back to feeling dyphoric, hopeless and with SI today. Restless sleep. Poor appetite. PMR. Impov speech, blunted affect, No psychosis. Tolerating med changes without discernable SEs. Plan to cont acute RUL ECT while inpt for now. Pt still represents a real and imminent risk for self harm 02/26/17 07:47 Pt interviewed prior to ECT today. He describes no change in mood status compared to yesterday. QIDS is however 2 points lower and our staff appreciates a small, objective change in affect that is positive. Will cont acute ECT. Will add propofol and increase IV zofran due to c/o of Nausea. Will utilize fiberous food, water and metamucil to address absence of bowel movement since admit. 03/01/17 10:10 Reviewed weekend notes of MDs, hospitalist, CC, RNs. Reviewed labs. Spoke with patient and called , Zo, this am. Pt wishes to be discharged. His QIDS score is a bit lower and he is denying suicidal intent AT THIS TIME, but acknowledges that he really does not know whether he is feeling better, as he is in the artificial environment of the hospital milieu. furthermore states that "he does not sound any better...he's quiet and spending all his day in bed...". I will strongly recommend that we delay discharge at this time as his risk of self harm, prior to admission to [facility], was extremely high as evidenced by his near lethal SA. Indeed, over the weekend, the hospitalist had to intervene due to nocturnal emesis felt to possibly be a function of GI issues from his OD. Thankfully, the PPI Rx'ed is helping that symptom. 's observations and even intuition about him, and her degree of skepticism about his stated absence of SI, are important variables that should not be discounted. Objectively, pt remains quiet, impov in speech, with PMR, able to force smiles. Denies present SI, but acknowledges he does not know how he might feel outside hospital. 03/02/17 14:52 Met with pt, spoke with CC and RN. Pt feels subtle, at best, improvement in mood. Objectively, a bit brighter, slightly more verbal, better eye contact, and denies present SI. However, he feels hospital setting is artificial and not allowing his full appraisal of mood change. He does endorse some future orientation and I believe he is truthful in his denial of SI, but he has limited insight into how Bipolar depression can affect him, and how it can have some waxing and waning in its intensity, with the potential to return fairly quickly to a state in which he becomes suicidal. Hence, whenever he is d/c'ed, family member who will providing 19/10 supervision must be vigilant abou that and limit his access to any implements of self harm, including any meds, Rxed or OTC, firearms or sharps. No driving allowed either until at least two weeks after last acute ECT. Constipation is resolved as is nocturnal nausea. 03/03/17 12:41 Spoke with Pt's at length about her assessment of Pt progress. She feels there is little discernable change and she fears he is minimizing his severity in order to agitate for premature discharge. I also believe he simply has limited insight and ability to recall how hopeless he had only recently been ( when he made such as serious SA). Hence, he appears--to --to be willfully manipulating to earn discharge, whereby I believe it is not so clearly a conscious manipulation. (She acknowledges that she is basing her assumptions about his previous manipulations while he had been an in-patient in a MANIC state. She responded to psycho-ed about depression NOT typically leading to such a severe degree of impaired insight as is seen in selin) He does appear objectively a bit brighter to me, but still constricted, impoverished and with PMR. Is attending some groups. No nausea at night. No longer c/o constipation. Will plan to treat in-patient at least through Wednesday and at that time obtain collateral info from and parents about how he is presenting. If all agree that he is finally, more definitively responding, he will likely discharge. 03/04/17 14:20 Met with pt today to assess status and discuss d/c possibility for tomorrow. Will have meeting with CC and family at 1pm. Pt feels subtle shift so far with ECT but does feel notably free of SI (a symptom, I shared with him, that is often most quickly improved with ECT, even preceding a subjective change in mood itself). Was in group. Able to smile and make good eye contact. Soft spoken, but more verbal. Sleep is good. Appetite fair, limited, he says,by the less than excellent quality of hospital food. Plan to cont acute ECT tomorrow and meet with family to discuss their impression of his status, and educate them about what strict / supervision looks like. If both parents and feel he truly looks no better and are very anxious about his leaving tomorrow, I will likely defer to their judgement, wicho in light of this patient's severe SA. Objective: Vital Signs Temp Pulse Resp BP Pulse Ox 36.9 C 72 16 107/57 L 95 03/04/17 06:00 03/04/17 06:00 03/04/17 06:00 03/04/17 06:00 03/04/17 06:00 Laboratory Results 03/01/17 06:20 03/01/17 06:20 PT 12.8 SEC (12.0-15.0) 03/01/17 06:20 INR 0.94 (0.83-1.16) 03/01/17 06:20 ICD10 Worksheet Patient Problems: Problems Problem Status Onset Bipolar 1 disorder, depressed, severe Acute
[2017-03-04] MEDS: DOXEPIN HCL 10 MG CAP PO SCH (18:31)
[2017-03-04] MEDS: lamoTRIgine 100 MG TAB PO SCH (18:31)
[2017-03-05] MEDS ORDERED: CITRIC ACID/SODIUM CITRATE 30 ML UDCUP PO ONE (04:00)
[2017-03-05] MEDS ORDERED: ONDANSETRON DISINTEGRATING 4 MG TAB PO ONE (04:00)
[2017-03-05] MEDS ORDERED: LIDOCAINE 2% 5 ML SDV ID ONE (04:00)
[2017-03-05] MEDS ORDERED: NS 1,000 ML IV ONE (04:00)
[2017-03-05] MEDS ORDERED: ONDANSETRON 4 MG/2 ML VIAL ONE (05:21)
[2017-03-05] MEDS ORDERED: KETOROLAC 30 MG/1 ML SDV ONE (05:21)
[2017-03-05] MEDS ORDERED: GLYCOPYRROLATE 0.2 MG/1 ML VIAL ONE (05:21)
[2017-03-05] MEDS ORDERED: fentaNYL 100 MCG/2 ML INJ ONE (05:21)
[2017-03-05] MEDS ORDERED: MIDAZOLAM 2 MG/2 ML VIAL ONE (05:21)
[2017-03-05] MEDS ORDERED: ROCURONIUM 50 MG/5 ML VIAL ONE (05:22)
[2017-03-05] MEDS ORDERED: ETOMIDATE 20 MG/10 ML VIAL ONE (05:22)
[2017-03-05] MEDS ORDERED: SUCCINYLCHOLINE CHLORIDE 200 MG/10 ML VIAL ONE (05:22)
[2017-03-05] MEDS ORDERED: PROPOFOL 200 MG/20 ML VIAL ONE (05:22)
[2017-03-05] MEDS: PANTOPRAZOLE SODIUM 40 MG TAB PO SCH (07:54)
[2017-03-05] MEDS: CHOLECALCIFEROL VIT D3 2,000 UNITS TAB/CAP PO SCH (07:54)
[2017-03-05] MEDS: PSYLLIUM METAMUCIL 1 PKT PO SCH (07:55)
[2017-03-05] MEDS: SENNOSIDES/DOCUSATE SODIUM TAB PO SCH (07:55)
[2017-03-05] MEDS: CARIPRAZINE 3 MG PO SCH (07:55)
[2017-03-05] MEDS ORDERED: CITRIC ACID/SODIUM CITRATE 30 ML UDCUP ONE (12:20)
[2017-03-05] MEDS ORDERED: ONDANSETRON DISINTEGRATING 4 MG TAB ONE (12:20)
[2017-03-05] MEDS ORDERED: HYDROCODONE/APAP 5/325 TAB PO PRN (12:48)
[2017-03-05 13:53] VITALS: BP 115/67; PULSE 88; RESP 16; TEMP 98.2; O2SAT 95
--- NOTE | 2017-03-05 23:56 | GDS ---
[f rep st] DISCHARGE SUMMARY IDENTIFYING DATA: The patient is a 31-year-old, white male, presently living with his a nd 4 children. He had been referred from [facility] by a psychiatrist, Arun Hassan MD, who referred him here for electroconvulsive therapy. He is treated outpatient by Sophie Corona NP, who also endorses this treatment. 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 He has prior psychiatric hospitalizations and a recent suicide attempt. REASON FOR ADMISSION: This patient has longstanding history of bipolar 1 illness punctuated mostly w ith severe manic episodes who now has undergone his 1st severe depressive episode with recent suicide attempt 2 weeks prior to the hospitalization leading to an ICU stay for Tylenol overdose. He had si gnificant vegetative symptoms of depression as described in History of Present Illness. He had been compliant with medications that included Lamictal, lithium and doxepin, and only had been noncomplian t with the new medication that was partially helpful, Vraylar, as his insurance would not cover that. He had been restarted on that medication at [facility]. PHYSICAL EXAMINATION: Routine physical exam performed by Jeremiah Ray, who indicates 1. Mental health issues, pending further evaluation by Psychiatry. 2. Tobacco dependence. He was encouraged regarding smoking cessation. 3. Dyslipidemia, which is mild. He did not meet criterion for statin therapy at this point. Encour aged dietary compliance and increased exercise. 4. Vitamin D deficiency. He is getting vitamin D replacement as appropriate. LABORATORY: The patient's complete blood count was within normal limits. Biochem profile was normal with a hemoglobin A1c of 5.2 and slightly elevated highly sensitive C-reactive protein at 3.5, vitam in B12 at 498 was normal, 25 hydroxy vitamin D was low at 18, TSH was normal at 2.15. HOSPITAL COURSE: The patient underwent the consenting process to start ECT. He chose to start right unilateral treatments and underwent 4 treatments while inpatient. [place] was held during the cours e of the acute treatments to reduce chances of neurotoxicity. Lamictal was halved from 200 mg to 100 mg to afford better seizures. The patient also had Protonix added for what appeared to be GERD that was causing him nocturnal nausea and even a couple of episodes of emesis. He tolerated the medicati ons with mild to moderate headache and nausea and no other significant side effects. He scored a 0 o n the question to do with suicidal ideation after the 1st treatment and continued to indicate that he did not have intent or plan to hurt himself and felt that he could not fathom why he had done that 3 weeks ago indicating a "state dependent" memory affect. I provided psychoeducation a few times to t he by phone and, once again, at a family meeting this day of discharge with her and parents invo lved. They understand the process of finishing acute treatments followed by maintenance ECT for up t o 6-12 months. It is also my clear stance that this patient should be on preventative medication for the rest of his life as this last episode of selin over the summer followed by this horrible crash i nto depression came in the wake of many years being off any psychotropic medication. The severity of this episode in presence of a suicide attempt clearly indicates the need for lifelong prevention goi ng forward. MEDICATIONS ON DISCHARGE: 1. [place] 5/325 1-2 tablets p.o. q.4 hours p.r.n. headache on treatment day only. 2. Phenergan 25 mg 1 tablet p.o. q.6 hours p.r.n. nausea on treatment day only. 3. Doxepin 10 mg p.o. q.h.s. 4. Lamictal 100 mg p.o. q.h.s. (Please skip the dose prior to each ECT treatment.). 5. Protonix 40 mg p.o. b.i.d. (Please follow up with your primary care doc to instruct you how long you should be on this medication.). 6. Vitamin D3 units each day (to be obtained over the counter). DISPOSITION: The patient will return home with and with the help of his parents. He will have 24/7 supervision during the acute phase of treatment for up to 2 weeks beyond that time. He is not t o drive until otherwise told. The family should take possession and dispense all of his medications. All lethal means of self-harm (guns, knives, medications including [id number] ones) are to be removed from his access. He is to follow up with 3 time per week ECT for likely 2 more weeks. I wi ll meet with family in about a week and a half to determine his status and prognosticate about how ma ny more acute treatments might be needed and to redefine how maintenance ECT takes place. His next t reatment is at noon on 03/08/2017. He is to follow up with Sophie Martínez in the next few weeks. DISCHARGE DIAGNOSES: AXIS I: Bipolar 1 disorder, depressed, severe. AXIS II: Deferred. AXIS III: Vitamin D deficiency and back pain. AXIS IV: Moderate. AXIS V: 45. /[id number]
== END 2017-03-05 14:57 | disposition home or self-care (01) | DRG 885 ==
LOC: BBEH 02-23 17:20
PROVIDERS: ADMIT Psychiatry & Neurology Psychiatry; ATTEND Psychiatry & Neurology Psychiatry
PROC: GZB0ZZZ Electroconvulsive Therapy, Unilateral-Single Seizure (ICD-10-PCS; principal; 2017-02-24)
DX: F31.4 Bipolar disorder, current episode depressed, severe, without psychotic features (principal); K21.9 Gastro-esophageal reflux disease without esophagitis; K59.00 Constipation, unspecified; F17.210 Nicotine dependence, cigarettes, uncomplicated; E78.5 Hyperlipidemia, unspecified; E55.9 Vitamin D deficiency, unspecified
CPT/HCPCS: 82607-90; 86141-90; J0330; J1885; J2250; J2405; J2704; J3010

== ENCOUNTER 2017-06-13 13:09 | Inpatient (IN) | payer MEDICAID, OTHER ==
--- NOTE | 2017-06-13 13:36 | EDPHY ---
H & P Stated Complaint: biploar depressed currently for 2 months, undergoes ECT. - Personal History Current Tetanus/Diphtheria Vaccine: Yes Current Tetanus Diphtheria and Acellular Pertussis (TDAP): Yes - Medical/Surgical History Hx Asthma: No Hx Chronic Respiratory Disease: No Hx Diabetes: No Hx Cardiac Disease: No Hx Renal Disease: No Hx Cirrhosis: No Hx Alcoholism: No Hx HIV/AIDS: No Hx Splenectomy or Spleen Trauma: No Other PMH: pmh:depression, biploar, SI, psych hospitalization. psh: dental - Social History Smoking Status: Current every day smoker Time Seen by Provider: 06/13/17 13:34 Constitutional: Initial Vital Signs Temperature (C) 36.7 C 06/13/17 13:24 Heart Rate 84 06/13/17 13:24 Respiratory Rate 16 06/13/17 13:24 Blood Pressure 150/79 H 06/13/17 13:24 O2 Sat (%) 99 06/13/17 13:24 O2 Delivery Mode Room Air Allergies/Adverse Reactions: No Known Allergies Allergy (Unverified 02/23/17 18:29) Home Medications: Medication Instructions Recorded Cariprazine HCl [Vraylar] 4.5 mg PO DAILY 02/25/17 lamoTRIgine [LamICTAL 100 MG (*)] 200 mg PO HS 04/30/17 Cholecalciferol (Vitamin D3) 5,000 units PO DAILY 05/10/17 [Vitamin D3] [place] Carbonate Cap 300 mg (*) 900 mg PO HS 05/10/17 Medical Decision Making ED Course/Re-evaluation: CHIEF COMPLAINT: Suicidal and depressed HISTORY OF PRESENT ILLNESS: 32-year-old gentleman with a very significant depression and potentially bipolar disorder. He has had ECT treatments in the past which have been somewhat beneficial. He is on several medicines now and he continues to take them. It has been several months since his last ECT treatment and he is feeling very suicidal and depressed slightly. He has a plan to take pills to try to injure himself. Additionally, he is accompanied by his and his daughter but he still feels suicidal. He has been sleeping 10-12 hours a day at a minimum. He has vegetative signs of depression. I was called by Dr. Martinez who is covering for Dr. Benito who is this patient's ED CT psychiatrist. REVIEW OF SYSTEMS: A 10 point review of systems was performed and is negative with the exception of the elements mentioned in the history of present illness. PHYSICAL EXAM: General Appearance: Alert, well hydrated, appropriate, and non-toxic appearing. Head: Atraumatic without scalp tenderness or obvious injury Eyes: Pupils equal, round, reactive to light and accommodation, EOMI, no trauma , no injection. Ears: Clear bilaterally, no perforation, normal landmarks Nose: Atraumatic, no rhinorrhea, clear. Throat: There is no erythema or exudates, no lesions, normal tonsils, mucus membranes moist. Neck: Supple, 2+ carotid upstroke, nontender, no lymphadenopathy. Respiratory: No retractions, no distress, no wheezes, and no accessory muscle use. Lungs are clear to auscultation bilaterally. Cardiovascular: Regular rate and rhythm, no murmurs, rubs, or gallops. Bilateral carotid, radial, dorsalis pedis, and posterior tibial pulses intact. Good capillary refill all extremities. Gastrointestinal: Abdomen is soft, nontender, non-distended, no masses, no rebound, no guarding, no peritoneal signs. Musculoskeletal: Normal active ROM of all extremities, atraumatic. Neurological: Alert, appropriate, and interactive. The patient has normal DTRs and non-focal cranial nerves, motor, sensory, and cerebellar exam. Skin: No rashes, good turgor, no nodules on palpation. Past medical history: Depression, suicidality Past surgical history: Noncontributory Family history: Psychiatric disease Social history: , employed, does not abuse tobacco drugs or alcohol DIFFERENTIAL DIAGNOSIS: The differential diagnosis for the patient's depression included but was not limited to functional and major depression, situational depression, medication side effect, drugs, and alcohol abuse. MEDICAL DECISION MAKING: Patient is in no acute distress and is hemodynamically stable. We are awaiting psychiatric team's evaluation. Patient has known history of psychiatric disorders and is here for evaluation. Most likely this patient needs to be admitted. He is here voluntarily and wants to be admitted for his suicidality. He also scheduled for ECT treatment on Wednesday. (Franck Grey) 1500: The patient is signed out to me at change of shift. The patient is awaiting evaluation. The personally evaluated the patient. He had no complaints at this time. 15 30: I discussed the case with Dr. Benito. He plans on admitting the patient. Patient will be transferred to [facility]. Patient agrees with this plan. (Kasie Aguero) - Data Points Laboratory Results: Laboratory Results 06/13/17 13:50 06/13/17 13:50 06/13/17 06/13/17 06/13/17 14:00 13:50 13:50 WBC RBC Hgb Hct MCV MCH MCHC RDW Plt Count MPV Neut % (Auto) Lymph % (Auto) [place] % (Auto) Eos % (Auto) Baso % (Auto) Nucleat RBC Rel Count Absolute Neuts (auto) Absolute Lymphs (auto) Absolute Monos (auto) Absolute Eos (auto) Absolute Basos (auto) Absolute Nucleated RBC Immature Gran % Immature Gran # Sodium 145 mEq/L mEq/L (135-145) Potassium 3.9 mEq/L mEq/L (3.5-5.2) Chloride 104 mEq/L mEq/L (97-110) Carbon Dioxide 25 mEq/l mEq/l (22-31) Anion Gap 16 mEq/L mEq/L (8-16) BUN 15 mg/dL mg/dL (7-23) Creatinine 1.0 mg/dL mg/dL (0.7-1.3) Estimated GFR > 60 Glucose 96 mg/dL mg/dL (70-100) Calcium 9.7 mg/dL mg/dL (8.5-10.4) TSH Pending Urine Opiates Screen NEGATIVE ng/mL ng/mL (NEGATIVE) Urine Barbiturates NEGATIVE ng/mL ng/mL (NEGATIVE) Ur Phencyclidine Scrn NEGATIVE ng/mL ng/mL (NEGATIVE) Ur Amphetamines Screen NEGATIVE ng/mL ng/mL (NEGATIVE) U Benzodiazepines Scrn NEGATIVE ng/mL ng/mL (NEGATIVE) Urine Cocaine Screen NEGATIVE ng/mL ng/mL (NEGATIVE) U Marijuana (THC) Screen NEGATIVE ng/mL ng/mL (NEGATIVE) 06/13/17 13:50 WBC 11.74 10^3/uL H 10^3/uL (3.80-9.50) RBC 5.90 10^6/uL 10^6/uL (4.40-6.38) Hgb 18.1 g/dL H g/dL (13.7-17.5) Hct 53.7 % H % (40.0-51.0) MCV 91.0 fL fL (81.5-99.8) MCH 30.7 pg pg (27.9-34.1) MCHC 33.7 g/dL g/dL (32.4-36.7) RDW 13.4 % % (11.5-15.2) Plt Count 204 10^3/uL 10^3/uL (150-400) MPV 9.7 fL fL (8.7-11.7) Neut % (Auto) 77.8 % H % (39.3-74.2) Lymph % (Auto) 16.7 % % (15.0-45.0) [place] % (Auto) 3.5 % L % (4.5-13.0) Eos % (Auto) 0.5 % L % (0.6-7.6) Baso % (Auto) 0.9 % % (0.3-1.7) Nucleat RBC Rel Count 0.0 % % (0.0-0.2) Absolute Neuts (auto) 9.13 10^3/uL H 10^3/uL (1.70-6.50) Absolute Lymphs (auto) 1.96 10^3/uL 10^3/uL (1.00-3.00) Absolute Monos (auto) 0.41 10^3/uL 10^3/uL (0.30-0.80) Absolute Eos (auto) 0.06 10^3/uL 10^3/uL (0.03-0.40) Absolute Basos (auto) 0.11 10^3/uL H 10^3/uL (0.02-0.10) Absolute Nucleated RBC 0.00 10^3/uL 10^3/uL (0-0.01) Immature Gran % 0.6 % % (0.0-1.1) Immature Gran # 0.07 10^3/uL 10^3/uL (0.00-0.10) Sodium Potassium Chloride Carbon Dioxide Anion Gap BUN Creatinine Estimated GFR Glucose Calcium TSH Urine Opiates Screen Urine Barbiturates Ur Phencyclidine Scrn Ur Amphetamines Screen U Benzodiazepines Scrn Urine Cocaine Screen U Marijuana (THC) Screen Departure - Departure Disposition: [facility] IP Clinical Impression: Suicidal ideation, Severe major depression Condition: Good Referrals: Allan Stauffer MD [Primary Care Provider] - As per Instructions
[2017-06-13 14:00] LABS: PLATELET COUNT 204 10^3/uL (150-400)
[2017-06-13] MEDS ORDERED: MAGNESIUM HYDROXIDE 30 ML UDCUP PO PRN ×2 (15:37→17:08)
[2017-06-13] MEDS ORDERED: MAG HYDROX/AL HYDROX/SIMETH 30 ML UDCUP PO PRN ×2 (15:37→17:08)
[2017-06-13] MEDS ORDERED: NICOTINE POLACRILEX 2 MG GUM B PRN ×2 (15:37→17:08)
[2017-06-13] MEDS ORDERED: QUEtiapine FUMARATE 50 MG TAB PO PRN (18:24)
--- NOTE | 2017-06-13 19:14 | BAPA ---
[f rep st] ADMISSION PSYCHIATRIC ASSESSMENT IDENTIFYING DATA: A 32-year-old white male, presently living with his and 4 children. He is treated by Sophie Martínez, Nurse Practitioner for his bipolar illness. This commercial underwriter treated the patient starting in January 2017 as an inpatient for acute ECT. He has been under my care receiving maintenance ECT since that time. 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 He just started a new job which is a precipitant for this relapse. He has prior psychiatric hospitalizations. HISTORY OF PRESENT ILLNESS: Please see the commercial underwriter's consultation dated 2016. This patient has a long history of bipolar I disorder starting in his late teens, punctuated mostly with severe manic episodes requiring hospitalizations and sustained periods of euthymia. However, this fall was his first ever very serious major depressive episode, prompting a very serious suicide attempt and a host of vegetative symptoms including a number of atypical depressive symptoms such as hypersomnia. Acute ECT was undertaken at that point and he had a fairly quick and dramatic improvement from his more serious and profound depression. However, the patient arguably discontinued his acute series prematurely, feeling overly optimistic that he was better enough, which led to some fairly quick relapse requiring an abbreviated extension of his acute course. For the last couple of months, he has been in maintenance ECT and the last 2 treatments had been done every other week. He presents with a low score on his QIDS and denies suicidality. However, he admitted to the commercial underwriter today that he had been minimizing some of his depressive symptoms and even periodic bouts of suicidal ideation without intent or plan. 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 Sophie Martínez had kept him on the medications that he was discharged on, but his lithium has been increased to 600 mg b.i.d. Otherwise, he remains on: Vraylar 3 mg p.o. q.h.s., Lamictal 100 mg p.o. b.i.d. , and vitamin D3 1000 a day. His home reconciliation does not indicate that he is presently on Protonix or doxepin any longer which are medications he was discharged on. He also states he has a strange tremor in his head that other people do not notice as much as he feels it and a tremor in his hands. He did not realize that these are potentially lithium related side effects and not just emblematic of anxiety, although they certainly could be worsened by that. He denies any present substance use that could be contributing to this present exacerbation of his mood state. His urine drug screen was negative in the emergency department. Furthermore, there is no clear medical issue that could be contributing. His electrolytes were normal and his WBC was elevated at 11.74 with increased neutrophils, but that is also consistent with lithium. His TSH was normal at 1.55. Gaines level drawn in the ED was 0.4. The patient states he did not take his dose of it this morning. Therefore, it is not an accurate blood level. Lamotrigine level is pending. For past medical history, psychiatric history, family history, and social history, please see the commercial underwriter's evaluation dated 02/23/2017. MENTAL STATUS EXAM: The patient is a 32-year-old white male appearing his stated age. He was interviewed on a hospital gurbronx in the emergency department. He is superficially composed, pleasant and cooperative and is able to ludwig out a smile, although his affect is clearly constricted and his speech is monotone and impoverished. His eye contact is fair. Hygiene and grooming are fair. Mood is depressed and at times highly anxious with rumination, guilt , and self deprecation. He is at times hopeless and has suicidal ideation with no concrete intent or plan, but states that this is what happened to him before his serious suicide attempt, namely he became sporadically and intermittently suicidal and it just evolved in an inexplicable way to a point where he impulsively acted on it. He is trying to prevent that from happening. He denies auditory and visual hallucinations as well as paranoid, somatic, or grandiose delusions. He may have racing thoughts at times during the panic attacks. He is alert and oriented x3, but subjectively feels impaired with attention and concentration. He has average intelligence. Judgment and insight are impaired and his impulse control is becoming more tenuous around self-destructive thinking. He has no homicidal ideation. DIAGNOSES: [place] I: Bipolar I disorder, depressed, severe, with possible mixed features. [place] II: Deferred. [place] III: History of low vitamin D and back pain. [place] IV: Moderate. [place] V: 33. IMPRESSION AND RECOMMENDATION: The patient is clearly not in remission nor has he been since his acute electroconvulsive therapy was terminated. He was clearly better than before starting electroconvulsive therapy and even now remains not quite back to his pre electroconvulsive therapy level of dysphoria and hopelessness. However, it is not surprising that he has impaired resilience against further relapse given that he never really reached a remitted state in the first place. It is also of note that the patient is disclosing that he has a history of minimizing his symptoms to doctors and wished to try to get back to work perhaps prematurely, thus pushing himself to put on a happier face with his physicians and family and minimizing his scores on our depression self-rating scales. This relapse, however, has alarmed him and he is showing some degree of good judgment in acting preventatively to keep himself from falling to the state that prompted the impulsive and inexplicable albeit very serious suicide attempt. I have left a voicemail with Sophie Martínez about other medication options. However, because electroconvulsive therapy has been quite helpful, albeit imperfectly so, the patient and I agree that he should undergo a brief acute course to try to get him out of this dip in mood and vegetative symptoms. This may require 2-5 treatments in my experience. The Vraylar will be continued, although it is not on formulary and I will therefore try to provide samples tomorrow. Gaines will be held if we are to undergo acute treatments to reduce the chances of cognitive impact and neurotoxicity. I will reduce his Lamictal dose, but not discontinue it to reduce the anticonvulsant effect. He is presently on a thoughtful combination of medications. I do wonder, however, whether Lamictal at 200 mg might involve inadequate blood level. We may wish to restart lithium at a lower dose as well when he is done with the acute phase given the side effects that in his line of work may become an issue (tremor). Vraylar seemed to help him in his opinion in the past and in fact, his troubles with severe depression seemed to happen when he was unable to afford the medication and stopped taking it. On the other hand, I might consider some other atypical antipsychotic after consulting with Sophie Martínez. I believe he has been on Abilify and Seroquel, but I am not sure if he has tried Latuda with its FDA approval in bipolar depression. Although this too will require samples for him at least initially, that may be worth trying instead of the Vraylar. Rexulti is another option. I will discuss the patient's status also with his tomorrow. I am unsure whether she might have been involved in trying to coax him understandably to try to return to work. It may simply be this patient trying to on his own negotiate for that. Nonetheless, she will need to understand that this patient's bipolar depression is proving to be fairly intractable as it has proved not even fully remitted with medications and electroconvulsive therapy. /[id number]/MODL MTDD
[2017-06-13] MEDS ORDERED: Cariprazine Hcl [Vraylar] 3 MG PO SCH (21:00)
[2017-06-14] MEDS ORDERED: LIDOCAINE 2% 5 ML SDV ID PRN ×2 (04:00)
[2017-06-14] MEDS ORDERED: CITRIC ACID/SODIUM CITRATE 30 ML UDCUP PO PRN ×2 (04:00)
[2017-06-14] MEDS ORDERED: ONDANSETRON DISINTEGRATING 4 MG TAB PO PRN ×3 (04:00→10:30)
[2017-06-14] MEDS ORDERED: NS 1,000 ML IV PRN ×2 (04:00)
[2017-06-14] MEDS: lamoTRIgine 100 MG TAB PO SCH ×2 (08:30→20:28)
[2017-06-14] MEDS: CHOLECALCIFEROL VIT D3 1,000 UNITS TAB PO SCH (08:30)
[2017-06-14] MEDS ORDERED: MIDAZOLAM 2 MG/2 ML VIAL ONE (08:55)
[2017-06-14] MEDS ORDERED: GLYCOPYRROLATE 0.2 MG/1 ML VIAL ONE (08:55)
[2017-06-14] MEDS ORDERED: KETOROLAC 30 MG/1 ML SDV ONE (08:55)
[2017-06-14] MEDS ORDERED: ONDANSETRON 4 MG/2 ML VIAL ONE (08:55)
[2017-06-14] MEDS ORDERED: ROCURONIUM 50 MG/5 ML VIAL ONE (08:55)
[2017-06-14] MEDS ORDERED: ETOMIDATE 20 MG/10 ML VIAL ONE (08:55)
[2017-06-14] MEDS ORDERED: fentaNYL 100 MCG/2 ML INJ ONE (08:55)
[2017-06-14] MEDS ORDERED: PROPOFOL 200 MG/20 ML VIAL ONE (08:55)
[2017-06-14] MEDS ORDERED: SUCCINYLCHOLINE CHLORIDE 200 MG/10 ML VIAL ONE (08:56)
[2017-06-14] MEDS ORDERED: ONDANSETRON DISINTEGRATING 4 MG TAB ONE (09:38)
[2017-06-14] MEDS ORDERED: CITRIC ACID/SODIUM CITRATE 30 ML UDCUP ONE (09:38)
--- NOTE | 2017-06-14 10:28 | PDHPUP ---
History & Physical Update H&P update statement: This history and physical update is based on an assessment of the patient which was completed after admission or registration (within 24 hours), but prior to the surgery/procedure. H&P update: H&P reviewed & patient examined, no change in patient's condition since H&P completed
--- NOTE | 2017-06-14 10:29 | PDANEPAE ---
ECT Pre Anesthetic Evaluation Allergies/Adverse Reactions: No Known Allergies Allergy (Unverified 02/23/17 18:29) Patient ID confirmed: Yes H&P reviewed: Yes Pre-anesthetic history reviewed: Yes Heart: regular rate and rhythym, no murmur, rub, or gallop Lungs: no respiratory distress, clear to auscultation Mallampati Score: Class 3 ASA Status: I Home Medications: Cariprazine HCl [Vraylar] 3 mg PO HS 02/25/17 [Last Taken 06/12/17] lamoTRIgine [LamICTAL 100 MG (*)] 0 mg PO BID 04/30/17 [Last Taken 06/12/17] [place] Carbonate [[place] Carbonate Cap 300 mg (*)] 600 mg PO BID 05/10/17 [ Last Taken 06/12/17] Cholecalciferol Vit D3 [Vitamin D3 (*)] 1,000 units PO DAILY 06/13/17 [Last Taken Unknown] Medication review: completed Patient interviewed: Yes Patient examined: Yes Anesthetic plan discussed with patient: Yes Anesthetic risks discussed with patient: Yes ECT Pre-Anesthetic History - Height & Weight Height: 190.5 cm Weight: 95.254 kg BMI: 26.25 - Anesthesia History Hx Anesthesia Complications (with details): None Family Hx Anesthesia Complications: None - Tobacco/Alcohol/Drug Use Smoking Status: Current every day smoker Hx Drug/Substance Abuse: No Alcohol Use: No - Prior Surgeries/Hospitalizations Prior Surgeries: [place] teeth removed Prior Medical Hospitalizations: Suicide attempts 02/2017 - Pulmonary History ECT Hx Asthma: No Hx Abnormal Chest X-Ray: No Hx Oxygen in Use at Home: No - Cardiovascular History Hx Hypertension: No Currently Uses Hypertension Medication: No Hx Arrhythmias: No Hx Palpitations: No Hx Chest Pain: No Hx Coronary Artery / Peripheral Vascular Disease: No Hx Blood Clot: No - Neurologic History Hx Cerebrovascular Accident: No Hx CT Scan Or MRI Of The Brain: No Hx Epilepsy, Convulsions, Seizures, Or Blackouts: No Hx Frequent Or Severe Headaches: No Hx Numbness: No Hx Neurologic Disorder: No - Dental History Current Dental Issues: None - Endocrine History Hx Diabetes: No Current Daily Insulin Injections: No Hx Thyroid Problems: No - Renal/Urologic History Hx Renal Disorders: No Hx Urinary Tract Problems: No - Liver History Hx Hepatic Disorders: No - Cancer History Hx Cancer: No - Hematology History Hx Unexplained Bleeding Of Any Type: No Hx Ease Of Bruising: No Hx Anemia: No - Gastrointestinal History Hx Gastroesophogeal Reflux Disease: No Hx Ulcers: No Hx Hiatal Hernia: No Hx Difficulty Swallowing: No - Musculoskeletal Hisory Hx Chronic Pain: No Hx Arthritis: No - Opthalmic History Hx Glaucoma: No Visual Assistive Devices: Contacts, Glasses Hx Opthalmic Disorders: No - Other Health History Physical Disabililty: No Recent Cough, Cold, or Fever: No Significant Weight Loss In The Last 4 Months: No Possible the Patient Might be : No
[2017-06-14] MEDS ORDERED: PROMETHAZINE HCL 25 MG TAB PO PRN (10:30)
[2017-06-14] MEDS ORDERED: NALOXONE HCL 0.4 MG/ML INJ IVP PRN (10:30)
[2017-06-14] MEDS ORDERED: HYDROCODONE/APAP 5/325 TAB PO PRN (10:30)
--- NOTE | 2017-06-14 10:44 | PDECTPN ---
ECT Progress Note Patient Problems: Problems Problem Status Onset Code Severe major depression Acute F32.2 Suicidal ideation Acute R45.851 Bipolar 1 disorder, depressed, severe Acute F31.4 Date: 06/14/17 Treatment#: 04/20 ECT provider: Allan Stauffer Anesthesia: Yan Ventura Stimulus dose (%): 95 Pulse width: 0.5 ECT EMG (sec): 41 ECT EEG (sec): 71 ECT treatment type: bilateral QIDS-SR, QIDS-SR question #12 answer, MMSE review: completed (16/04 and on mccray) Next ECT date: 06/16/17 Next ECT time: 08:45 O/P psychiatrist follow up with Dr.: Sophie Vega O/P psychiatrist follow up: direct communication Home medications: Cariprazine HCl [Vraylar] 3 mg PO HS 02/25/17 [Last Taken 06/12/17] lamoTRIgine [LamICTAL 100 MG (*)] 0 mg PO BID 04/30/17 [Last Taken 06/12/17] [place] Carbonate [[place] Carbonate Cap 300 mg (*)] 600 mg PO BID 05/10/17 [ Last Taken 06/12/17] Cholecalciferol Vit D3 [Vitamin D3 (*)] 1,000 units PO DAILY 06/13/17 [Last Taken Unknown] Medication review: completed Current treatment plan: acute phase Treatment plan frequency: 3 times per week ECT narrative: Met with pt for re-consulation around ECT and spoke at length with providing psychoeducation. SPent 75 min total. Spoke with Sophie jacobs medjohnny. My first thought is to optimize Lamictal dose based on level and drop Li to 900 mg given SEs. Otherwise,. I agree with Lori Vega that Marty is indeed a good candidate for resumption of ECT. This is based on significant acuity and/or treatment resistance to medications (or other modalities). Our patient is informed about the relative efficacy of ECT versus other modalities and--despite its risks, side effects and inconveniences,--understands the significantly enhanced efficacy and expedience of results provided. APA guidelines for ECT discussed. sites) in the service of providing psycho- education about ECT, and its risks, benefits and alternatives. We discussed APA based guidelines for being a candidate for this procedure, including factors such as acuity, treatment resistance/intolerance, pt preference, the risk of inaction or inadequate action (ie, morbidity or mortality from SI of mood disorder if under treated), and the role of possible diagnostic uncertainty. Alternative treatments, such as further med trial(s), TMS, or psychotherapies were discussed. Star D data was used to inform this medical decision making process, comparing relative remission rates with further med trials in a treatment resistant cohort with remission and response rates using ECT in TRD. The risks were highlighted including mortality from anesthesia, SC , arrhythmia, or CVA.Common, nuisance side effects were discussed including headache, nausea/emesis, jaw pain, muscle aches. Cognitive side effects were discussed extensively, both verbally and with written handout. This included the potential for: anterograde and retrograde amnesia; transient delirium; hypofrontality with abulia and slowed processing speed ;a sense of derealization/depersonalization. State dependent memory issues were discussed as a form of remote memory effect that may be more a function of one s very improvement than a side effect of ECT itself. Again, all these risks and side effects were balanced against the risk using alternative or status quo treatment. We discussed RUL vs Bilateral ECT and the pros and cons of trying Ketamine as anesthetic agent (versus etomidate or brevital), with its putative antidepressant effects and reduction of cognitive ses. Ketamine has increased nausea, longer sedative effect post ECT, and simply the unknown of using it 3x/ week. Typical course is 6-18 ECTs, 2-3 times per week. Often RUL takes longer to complete than Bilateral, and up to 50% of our patients who start with RUL switch at some point to bilateral due to inadequate or slow response. Maintenance ECT was discussed as beneficial to reduce relapse risk, when used with meds, rather than either modality alone or , of course, neither modality, with its 85% relapse risk in the months following acute ECT in those who respond initially. Discussed alternative of starting inpatient vs outpatient, and the need for 24/7 supervision for any part of acute ECT done outpatient. This supervision should persist for at least two weeks beyond the end of the acute phase. Pt and family is instructed to speak with Selene Angel RN (phone [phone]) re logistic of starting and has information about the supportive, therapeutic services (for pt or family) of [facility] Ont[facility]os, for whom a number is provided. They understand to use division officer weapons department (phone [phone])to schedule any further visit with me. It is understood that once we start the acute phase, I will wish to see pt and family in the office to discuss progress , etc. All above accomplished using language understood to patient and family, with ample opportunity given to answer questions and express concerns. It was encouraged that after reviewing the written information given, discussing this treatment option further amongst themselves, or with their referring psychiatrist, that they return to me for further discussion if they feel the need.
--- NOTE | 2017-06-14 10:45 | POSTANESTH ---
Post Anesthetic Evaluation Cardiovascular Status: Normal, Stable Respiratory Status: Normal, Stable, Requires Airway Assist Level of Consciousness/Mental Status: Unconscious Pain Control: Adequate, Prn Tx Ordered Nausea/Vomiting Control: Adequate, Prn Tx Ordered
--- NOTE | 2017-06-14 20:08 | BCON ---
[f rep st] BEHAVIORAL HEALTH CONSULTATION INTERNAL MEDICINE CONSULTATION DATE OF CONSULTATION: 06/14/2017 REFERRING PHYSICIAN: Allan Stauffer MD REASON FOR REFERRAL: Medical clearance for inpatient behavioral health stay. HISTORY OF PRESENT ILLNESS: This patient came to the emergency department, referred for electroconvulsive therapy for worsening depression and suicidal ideation. He has a history of bipolar disorder and has had a previous positive response to depression with ECT. He was evaluated by the mental health team and admitted for continued ECT therapy. He is currently without any acute complaints other than currently feeling the after-effects of his initial ECT treatment today with some somnolence. PAST MEDICAL HISTORY: Bipolar disorder. PAST SURGICAL HISTORY: He has had wisdom teeth extracted. MEDICATIONS PRIOR TO ADMISSION: 1. [place] 600 mg p.o. twice daily. 2. Cholecalciferol 1000 units p.o. daily. 3. Cariprazine 3 mg p.o. at bedtime. 4. Lamotrigine 100 mg b.i.d. ALLERGIES: There are no known drug allergies. SOCIAL HISTORY: He is . He lives with his and 4 children. He works as a home care nurse. He is a smoker. FAMILY HISTORY: He denies any family history of tremor. His father has sleep apnea. REVIEW OF SYSTEMS: Positive for recent weight gain of approximately 25 pounds. He reports his normal weight is about 185 and he currently weighs about 210. He reports that he snores and has been snoring more lately. He denies pain, cough, dyspnea, chest pain, palpitations, fevers, chills, and otherwise, a 10- point review of systems is negative. PHYSICAL EXAM: VITAL SIGNS: Blood pressure is 98/57, heart rate is 73, respiratory rate is 16, oxygen saturation is 94% on room air, temperature is 36.3 degrees centigrade. His weight is 95.3 kg for a body mass index of 26.2. GENERAL: This is a slightly overweight appearing man, napping in bed, easily awakened, sits up for the examination, cooperative and in no acute distress. HEENT: Extraocular movements are intact. Pupils are equal, round, and reactive to light. Mucous membranes are moist. Dentition is in good condition. He has a crowded airway, Mallampati class 3. NECK: Supple. HEART : There is a regular rate and rhythm with no murmurs, rubs, or gallops. LUNGS : Clear to auscultation bilaterally. ABDOMEN: Benign. EXTREMITIES: There is no cyanosis, clubbing, or edema. NEUROLOGIC: He is alert and oriented x3. Cranial nerves 2-12 are grossly intact. There is no focal weakness. Sensation is intact to light touch. LABORATORY STUDIES: From the emergency department, CBC revealed some hemoconcentration with hemoglobin of 18.1 and hematocrit of 53.7, upper limits of normal being 17.5 and 51. He had an elevated white count at 11.74 with no left shift, but a predominance of absolute neutrophils. Serum chemistry revealed normal renal function and electrolytes. TSH was normal at 1.55. Toxicology screen in the serum revealed a subtherapeutic lithium level at 0.4, and toxicology screen in the urine was negative for any substances of abuse. ASSESSMENT/RECOMMENDATIONS: 1. Mental health issues with bipolar depression, currently receiving electroconvulsive therapy. 2. Weight gain, possibly related to depression. Consider avoiding medications which could cause further weight gain; however, his psychosocial stabilization is 1st priority. 3. Snoring and crowded airway, risk for obstructive sleep apnea. Advise sleep study after discharge. 4. Tobacco dependence syndrome, encouraged smoking cessation. I see no medical contraindications to this patient's continued stay on the inpatient behavioral health unit or to any psychiatric medications or procedures. Thank you very much for including me in the care of this patient and please do not hesitate to contact me or the hospitalist service should there be need for further medical evaluation. /[id number]/MODL MTDD
[2017-06-14] MEDS: Cariprazine Hcl [Vraylar] 3 MG PO SCH (20:28)
[2017-06-15] MEDS: lamoTRIgine 100 MG TAB PO SCH (08:40)
[2017-06-15] MEDS: CHOLECALCIFEROL VIT D3 1,000 UNITS TAB PO SCH (08:40)
--- NOTE | 2017-06-15 15:38 | SOAPPROG ---
SOAP Progress Note Assessment/Plan: Assessment: Bipolar I depressed Plan: 06/14/17 10:45 Met with pt for re-consulation around ECT and spoke at length with providing psychoeducation. SPent 75 min total. Spoke with Sophie Vega re meds. My first thought is to optimize Lamictal dose based on level and drop Li to 900 mg given SEs. Otherwise, I agree with Lori Vega that Marty is indeed a good candidate for resumption of ECT. This is based on significant acuity and/or treatment resistance to medications (or other modalities). Our patient is informed about the relative efficacy of ECT versus other modalities and--despite its risks, side effects and inconveniences,--understands the significantly enhanced efficacy and expedience of results provided. APA guidelines for ECT discussed. [facility]) in the service of providing psycho-education about ECT, and its risks , benefits and alternatives. We discussed APA based guidelines for being a candidate for this procedure, including factors such as acuity, treatment resistance/intolerance, pt preference, the risk of inaction or inadequate action (ie, morbidity or mortality from SI of mood disorder if under treated), and the role of possible diagnostic uncertainty. Alternative treatments, such as further med trial(s), TMS, or psychotherapies were discussed. Star D data was used to inform this medical decision making process, comparing relative remission rates with further med trials in a treatment resistant cohort with remission and response rates using ECT in TRD. The risks were highlighted including mortality from anesthesia, MS, arrhythmia, or CVA.Common, nuisance side effects were discussed including headache, nausea/ emesis, jaw pain, muscle aches. Cognitive side effects were discussed extensively, both verbally and with written handout. This included the potential for: anterograde and retrograde amnesia; transient delirium; hypofrontality with abulia and slowed processing speed ;a sense of derealization/depersonalization. State dependent memory issues were discussed as a form of remote memory effect that may be more a function of ones very improvement than a side effect of ECT itself. Again, all these risks and side effects were balanced against the risk using alternative or status quo treatment. We discussed RUL vs Bilateral ECT and the pros and cons of trying Ketamine as anesthetic agent (versus etomidate or brevital), with its putative antidepressant effects and reduction of cognitive ses. Ketamine has increased nausea, longer sedative effect post ECT, and simply the unknown of using it 3x/ week. Typical course is 6-18 ECTs, 2-3 times per week. Often RUL takes longer to complete than Bilateral, and up to 50% of our patients who start with RUL switch at some point to bilateral due to inadequate or slow response. Maintenance ECT was discussed as beneficial to reduce relapse risk, when used with meds, rather than either modality alone or , of course, neither modality, with its 85% relapse risk in the months following acute ECT in those who respond initially Discussed alternative of starting inpatient vs outpatient, and the need for 24/ 7 supervision for any part of acute ECT done outpatient. This supervision should persist for at least two weeks beyond the end of the acute phase. Pt and family is instructed to speak with Selene Angel RN (phone [phone]) re logistic of starting and has information about the supportive, therapeutic services (for pt or family) of [facility] Ontiver[facility], for whom a number is provided. They understand to use housing management officer (phone [phone])to schedule any further visit with me. It is understood that once we start the acute phase, I will wish to see pt and family in the office to discuss progress, etc. All above accomplished using language understood to patient and family, with ample opportunity given to answer questions and express concerns. It was encouraged that after reviewing the written information given, discussing this treatment option further amongst themselves, or with their referring psychiatrist, that they return to me for further discussion if they feel the need. 06/15/17 15:34 Reviewed CC notes and Internal medicine report. Pt LMT level still pnd. He feels better after first ECT, but attributes that in part to d/c of Li. I educated him about this improvement (mostly in anxiety) as likely not due to Li d/c. That only SEs like tremor would be better, but mood change is likely due to single ECT. But, I also challenged him about minimization and counselled him to be as forthcoming as possible as a premature d/c would be imprudent. He does objectively seem a bit brigher and more engaged with less of a constricted affect. Denies present SI, but had recently reported tenuous I/C around such thoughts. Plan is to proceed with acute ECT, likely thru Wednesday and to d/c him on [place] 600 mg hs (a reduced dose, which he wishes) and an optimized dose of LMT (TBD, as level pnd). Will then proceed with mECT at a shorter interval for a while. Objective: Vital Signs Temp Pulse Resp BP Pulse Ox 36.9 C 70 14 94/54 L 93 06/15/17 06:00 06/15/17 06:00 06/15/17 06:00 06/15/17 06:00 06/15/17 06:00 06/14/17 06/15/17 06/16/17 05:59 05:59 05:59 Intake Total 1000 Balance 1000 Laboratory Tests 06/13/17 06/13/17 13:12 13:50 Lamotrigine Pending [place] 0.4 L ICD10 Worksheet Patient Problems: Problems Problem Status Onset Severe major depression Acute Suicidal ideation Acute Bipolar 1 disorder, depressed, severe Acute
[2017-06-15] MEDS: Cariprazine Hcl [Vraylar] 3 MG PO SCH (21:12)
[2017-06-16] MEDS ORDERED: LIDOCAINE 2% 5 ML SDV ID PRN (04:00)
[2017-06-16] MEDS ORDERED: CITRIC ACID/SODIUM CITRATE 30 ML UDCUP PO PRN (04:00)
[2017-06-16] MEDS ORDERED: NS 1,000 ML IV PRN (04:00)
[2017-06-16] MEDS ORDERED: ONDANSETRON DISINTEGRATING 4 MG TAB PO PRN (04:00)
[2017-06-16] MEDS ORDERED: KETOROLAC 30 MG/1 ML SDV ONE (06:29)
[2017-06-16] MEDS ORDERED: MIDAZOLAM 2 MG/2 ML VIAL ONE (06:29)
[2017-06-16] MEDS ORDERED: fentaNYL 100 MCG/2 ML INJ ONE (06:29)
[2017-06-16] MEDS ORDERED: ONDANSETRON 4 MG/2 ML VIAL ONE (06:30)
[2017-06-16] MEDS ORDERED: ETOMIDATE 20 MG/10 ML VIAL ONE (06:30)
[2017-06-16] MEDS ORDERED: GLYCOPYRROLATE 0.2 MG/1 ML VIAL ONE (06:30)
[2017-06-16] MEDS ORDERED: ROCURONIUM 50 MG/5 ML VIAL ONE (06:30)
[2017-06-16] MEDS ORDERED: PROPOFOL 200 MG/20 ML VIAL ONE (06:30)
[2017-06-16] MEDS ORDERED: SUCCINYLCHOLINE CHLORIDE 200 MG/10 ML VIAL ONE (06:30)
[2017-06-16] MEDS: CHOLECALCIFEROL VIT D3 1,000 UNITS TAB PO SCH (10:05)
[2017-06-16] MEDS ORDERED: CITRIC ACID/SODIUM CITRATE 30 ML UDCUP ONE (12:09)
[2017-06-16] MEDS ORDERED: ONDANSETRON DISINTEGRATING 4 MG TAB ONE (12:09)
--- NOTE | 2017-06-16 12:45 | PDANEPAE ---
ECT Pre Anesthetic Evaluation Allergies/Adverse Reactions: No Known Allergies Allergy (Unverified 02/23/17 18:29) Patient ID confirmed: Yes H&P reviewed: Yes Pre-anesthetic history reviewed: Yes Heart: regular rate and rhythym, no murmur, rub, or gallop Lungs: no respiratory distress, clear to auscultation Mallampati Score: Class 3 ASA Status: I Home Medications: Cariprazine HCl [Vraylar] 3 mg PO HS 02/25/17 [Last Taken 06/12/17] lamoTRIgine [LamICTAL 100 MG (*)] 0 mg PO BID 04/30/17 [Last Taken 06/12/17] [place] Carbonate [[place] Carbonate Cap 300 mg (*)] 600 mg PO BID 05/10/17 [ Last Taken 06/12/17] Cholecalciferol Vit D3 [Vitamin D3 (*)] 1,000 units PO DAILY 06/13/17 [Last Taken Unknown] Medication review: completed Patient interviewed: Yes Patient examined: Yes Anesthetic plan discussed with patient: Yes Anesthetic risks discussed with patient: Yes ECT Pre-Anesthetic History - Height & Weight Height: 190.5 cm Weight: 95.254 kg BMI: 26.25 - Anesthesia History Hx Anesthesia Complications (with details): None Family Hx Anesthesia Complications: None - Tobacco/Alcohol/Drug Use Smoking Status: Current every day smoker Hx Drug/Substance Abuse: No Alcohol Use: No - Prior Surgeries/Hospitalizations Prior Surgeries: [place] teeth removed Prior Medical Hospitalizations: Suicide attempts 02/2017 - Pulmonary History ECT Hx Asthma: No Hx Abnormal Chest X-Ray: No Hx Oxygen in Use at Home: No - Cardiovascular History Hx Hypertension: No Currently Uses Hypertension Medication: No Hx Arrhythmias: No Hx Palpitations: No Hx Chest Pain: No Hx Coronary Artery / Peripheral Vascular Disease: No Hx Blood Clot: No - Neurologic History Hx Cerebrovascular Accident: No Hx CT Scan Or MRI Of The Brain: No Hx Epilepsy, Convulsions, Seizures, Or Blackouts: No Hx Frequent Or Severe Headaches: No Hx Numbness: No Hx Neurologic Disorder: No - Dental History Current Dental Issues: None - Endocrine History Hx Diabetes: No Current Daily Insulin Injections: No Hx Thyroid Problems: No - Renal/Urologic History Hx Renal Disorders: No Hx Urinary Tract Problems: No - Liver History Hx Hepatic Disorders: No - Cancer History Hx Cancer: No - Hematology History Hx Unexplained Bleeding Of Any Type: No Hx Ease Of Bruising: No Hx Anemia: No - Gastrointestinal History Hx Gastroesophogeal Reflux Disease: No Hx Ulcers: No Hx Hiatal Hernia: No Hx Difficulty Swallowing: No - Musculoskeletal Hisory Hx Chronic Pain: No Hx Arthritis: No - Opthalmic History Hx Glaucoma: No Visual Assistive Devices: Contacts, Glasses Hx Opthalmic Disorders: No - Other Health History Physical Disabililty: No Recent Cough, Cold, or Fever: No Significant Weight Loss In The Last 4 Months: No Possible the Patient Might be : No
--- NOTE | 2017-06-16 12:51 | POSTANESTH ---
Post Anesthetic Evaluation Cardiovascular Status: Normal, Stable Respiratory Status: Normal, Stable, Requires Airway Assist Level of Consciousness/Mental Status: Unconscious Pain Control: Adequate, Prn Tx Ordered Nausea/Vomiting Control: Adequate, Prn Tx Ordered Complications Possibly Related to Anesthesia: None Noted
--- NOTE | 2017-06-16 13:22 | PDECTPN ---
ECT Progress Note Patient Problems: Problems Problem Status Onset Code Severe major depression Acute F32.2 Suicidal ideation Acute R45.851 Bipolar 1 disorder, depressed, severe Acute F31.4 Date: 06/16/17 Treatment#: 25 ECT provider: Allan Stauffer Anesthesia: Yan [place] Stimulus dose (%): 100 Pulse width: 0.5 ECT EMG (sec): 35 ECT EEG (sec): 64 ECT treatment type: bilateral QIDS-SR, QIDS-SR question #12 answer, MMSE review: completed (11/04 ) Next ECT date: 06/18/17 Next ECT time: 10:30 O/P psychiatrist follow up with Dr.: Sophie Vega O/P psychiatrist follow up: direct communication Home medications: Cariprazine HCl [Vraylar] 3 mg PO HS 02/25/17 [Last Taken 06/12/17] lamoTRIgine [LamICTAL 100 MG (*)] 0 mg PO BID 04/30/17 [Last Taken 06/12/17] [place] Carbonate [[place] Carbonate Cap 300 mg (*)] 600 mg PO BID 05/10/17 [ Last Taken 06/12/17] Cholecalciferol Vit D3 [Vitamin D3 (*)] 1,000 units PO DAILY 06/13/17 [Last Taken Unknown] Medication review: completed Current treatment plan: acute phase Treatment plan frequency: 3 times per week ECT narrative: Met with pt for re-consulation around ECT and spoke at length with providing psychoeducation. SPent 75 min total. Spoke with Sophie cortez. My first thought is to optimize Lamictal dose based on level and drop Li to 900 mg given SEs. Otherwise,. I agree with Lori Vega that Marty is indeed a good candidate for resumption of ECT. This is based on significant acuity and/or treatment resistance to medications (or other modalities). Our patient is informed about the relative efficacy of ECT versus other modalities and--despite its risks, side effects and inconveniences,--understands the significantly enhanced efficacy and expedience of results provided. APA guidelines for ECT discussed. sites) in the service of providing psycho- education about ECT, and its risks, benefits and alternatives. We discussed APA based guidelines for being a candidate for this procedure, including factors such as acuity, treatment resistance/intolerance, pt preference, the risk of inaction or inadequate action (ie, morbidity or mortality from SI of mood disorder if under treated), and the role of possible diagnostic uncertainty. Alternative treatments, such as further med trial(s), TMS, or psychotherapies were discussed. Star D data was used to inform this medical decision making process, comparing relative remission rates with further med trials in a treatment resistant cohort with remission and response rates using ECT in TRD. The risks were highlighted including mortality from anesthesia, [place] , arrhythmia, or CVA.Common, nuisance side effects were discussed including headache, nausea/emesis, jaw pain, muscle aches. Cognitive side effects were discussed extensively, both verbally and with written handout. This included the potential for: anterograde and retrograde amnesia; transient delirium; hypofrontality with abulia and slowed processing speed ;a sense of derealization/depersonalization. State dependent memory issues were discussed as a form of remote memory effect that may be more a function of one s very improvement than a side effect of ECT itself. Again, all these risks and side effects were balanced against the risk using alternative or status quo treatment. We discussed RUL vs Bilateral ECT and the pros and cons of trying Ketamine as anesthetic agent (versus etomidate or brevital), with its putative antidepressant effects and reduction of cognitive ses. Ketamine has increased nausea, longer sedative effect post ECT, and simply the unknown of using it 3x/ week. Typical course is 6-18 ECTs, 2-3 times per week. Often RUL takes longer to complete than Bilateral, and up to 50% of our patients who start with RUL switch at some point to bilateral due to inadequate or slow response. Maintenance ECT was discussed as beneficial to reduce relapse risk, when used with meds, rather than either modality alone or , of course, neither modality, with its 85% relapse risk in the months following acute ECT in those who respond initially. Discussed alternative of starting inpatient vs outpatient, and the need for 24/7 supervision for any part of acute ECT done outpatient. This supervision should persist for at least two weeks beyond the end of the acute phase. Pt and family is instructed to speak with Selene Angel RN (phone [phone]) re logistic of starting and has information about the supportive, therapeutic services (for pt or family) of [facility] Ontiveros, for whom a number is provided. They understand to use chief administrative officer (phone [phone])to schedule any further visit with me. It is understood that once we start the acute phase, I will wish to see pt and family in the office to discuss progress , etc. All above accomplished using language understood to patient and family, with ample opportunity given to answer questions and express concerns. It was encouraged that after reviewing the written information given, discussing this treatment option further amongst themselves, or with their referring psychiatrist, that they return to me for further discussion if they feel the need. 06/16. Met with pt about his mood status and symptoms, as well as SEs. He still indicates an improvement that has persisted since his first ECT Wednesday , but he looks objectively a bit more constricted and impoverished. We spoke of med changes to be implemented at discharge: pt will be able to have LMT dose vastly increased due to low level checked in ED (level 2.4 reflective of dose of 200 mg), [place] to be reduced to 900 mg all at hs to reduce tremor issue. No other changes. All this discussed with Sophie Vega.
[2017-06-16] MEDS: Cariprazine Hcl [Vraylar] 3 MG PO SCH (21:34)
[2017-06-16] MEDS: lamoTRIgine 100 MG TAB PO SCH (21:34)
[2017-06-17] MEDS: lamoTRIgine 100 MG TAB PO SCH ×2 (08:16→19:51)
[2017-06-17] MEDS: CHOLECALCIFEROL VIT D3 1,000 UNITS TAB PO SCH (08:16)
--- NOTE | 2017-06-17 11:40 | SOAPPROG ---
SOAP Progress Note Assessment/Plan: Assessment: Bipolar I depressed Plan: 06/14/17 10:45 Met with pt for re-consulation around ECT and spoke at length with providing psychoeducation. SPent 75 min total. Spoke with Sophie Vega re meds. My first thought is to optimize Lamictal dose based on level and drop Li to 900 mg given SEs. Otherwise, I agree with Lori Vega that Marty is indeed a good candidate for resumption of ECT. This is based on significant acuity and/or treatment resistance to medications (or other modalities). Our patient is informed about the relative efficacy of ECT versus other modalities and--despite its risks, side effects and inconveniences,--understands the significantly enhanced efficacy and expedience of results provided. APA guidelines for ECT discussed. [facility]) in the service of providing psycho-education about ECT, and its risks , benefits and alternatives. We discussed APA based guidelines for being a candidate for this procedure, including factors such as acuity, treatment resistance/intolerance, pt preference, the risk of inaction or inadequate action (ie, morbidity or mortality from SI of mood disorder if under treated), and the role of possible diagnostic uncertainty. Alternative treatments, such as further med trial(s), TMS, or psychotherapies were discussed. Star D data was used to inform this medical decision making process, comparing relative remission rates with further med trials in a treatment resistant cohort with remission and response rates using ECT in TRD. The risks were highlighted including mortality from anesthesia, MT, arrhythmia, or CVA.Common, nuisance side effects were discussed including headache, nausea/ emesis, jaw pain, muscle aches. Cognitive side effects were discussed extensively, both verbally and with written handout. This included the potential for: anterograde and retrograde amnesia; transient delirium; hypofrontality with abulia and slowed processing speed ;a sense of derealization/depersonalization. State dependent memory issues were discussed as a form of remote memory effect that may be more a function of ones very improvement than a side effect of ECT itself. Again, all these risks and side effects were balanced against the risk using alternative or status quo treatment. We discussed RUL vs Bilateral ECT and the pros and cons of trying Ketamine as anesthetic agent (versus etomidate or brevital), with its putative antidepressant effects and reduction of cognitive ses. Ketamine has increased nausea, longer sedative effect post ECT, and simply the unknown of using it 3x/ week. Typical course is 6-18 ECTs, 2-3 times per week. Often RUL takes longer to complete than Bilateral, and up to 50% of our patients who start with RUL switch at some point to bilateral due to inadequate or slow response. Maintenance ECT was discussed as beneficial to reduce relapse risk, when used with meds, rather than either modality alone or , of course, neither modality, with its 85% relapse risk in the months following acute ECT in those who respond initially Discussed alternative of starting inpatient vs outpatient, and the need for 24/ 7 supervision for any part of acute ECT done outpatient. This supervision should persist for at least two weeks beyond the end of the acute phase. Pt and family is instructed to speak with Selene Angel RN (phone [phone]) re logistic of starting and has information about the supportive, therapeutic services (for pt or family) of [facility], for whom a number is provided. They understand to use biosecurity officer (phone [phone])to schedule any further visit with me. It is understood that once we start the acute phase, I will wish to see pt and family in the office to discuss progress, etc. All above accomplished using language understood to patient and family, with ample opportunity given to answer questions and express concerns. It was encouraged that after reviewing the written information given, discussing this treatment option further amongst themselves, or with their referring psychiatrist, that they return to me for further discussion if they feel the need. 06/15/17 15:34 Reviewed CC notes and Internal medicine report. Pt LMT level still pnd. He feels better after first ECT, but attributes that in part to d/c of Li. I educated him about this improvement (mostly in anxiety) as likely not due to Li d/c. That only SEs like tremor would be better, but mood change is likely due to single ECT. But, I also challenged him about minimization and counselled him to be as forthcoming as possible as a premature d/c would be imprudent. He does objectively seem a bit brigher and more engaged with less of a constricted affect. Denies present SI, but had recently reported tenuous I/C around such thoughts. Plan is to proceed with acute ECT, likely thru Wednesday and to d/c him on [place] 600 mg hs (a reduced dose, which he wishes) and an optimized dose of LMT (TBD, as level pnd). Will then proceed with mECT at a shorter interval for a while. 06/17/17 11:36 Pt interviewed on unit. He had been attending group, a sign of improvment for him (rather than his pre ECT baseline of isolating and staying bed ridden). His affect is brighter and he declares his mood has improved, but also indicates that he is not sure how he would be on 'the outside" having to contend with life stressors. He also had indicated to senior copywriter that he never really attained full remission of bipolar depression after the initial acute series of ECT. Hence, a treatment tomorrow is warranted followed by, at discharge, a dramatic increase in his LMT dose, and small decrease to 900 mg of Randalia. Will do mECT at interval at q1-2 weeks, instead of longer. 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
[2017-06-17] MEDS: Cariprazine Hcl [Vraylar] 3 MG PO SCH (19:59)
[2017-06-18] MEDS ORDERED: ROCURONIUM 50 MG/5 ML VIAL ONE (05:33)
[2017-06-18] MEDS ORDERED: SUCCINYLCHOLINE CHLORIDE 200 MG/10 ML VIAL ONE (05:33)
[2017-06-18] MEDS ORDERED: ONDANSETRON 4 MG/2 ML VIAL ONE (05:33)
[2017-06-18] MEDS ORDERED: GLYCOPYRROLATE 0.2 MG/1 ML VIAL ONE (05:33)
[2017-06-18] MEDS ORDERED: ETOMIDATE 20 MG/10 ML VIAL ONE (05:33)
[2017-06-18] MEDS ORDERED: MIDAZOLAM 2 MG/2 ML VIAL ONE (05:33)
[2017-06-18] MEDS ORDERED: fentaNYL 100 MCG/2 ML INJ ONE (05:33)
[2017-06-18] MEDS ORDERED: KETOROLAC 30 MG/1 ML SDV ONE (05:33)
[2017-06-18] MEDS ORDERED: PROPOFOL 200 MG/20 ML VIAL ONE (05:33)
[2017-06-18] MEDS: CHOLECALCIFEROL VIT D3 1,000 UNITS TAB PO SCH (09:49)
--- NOTE | 2017-06-18 09:54 | BDS ---
[f rep st] DISCHARGE SUMMARY Corrected report IDENTIFYING DATA: The patient is a 32-year-old , white male, presently living with his and 4 children. He is treated by Sophie Martínez NP for his bipolar illness. This remote mortgage underwriter treated the patient starting in January 2017, as an inpatient with acute ECT and he has been under my care receiving maintenance ECT since that time. 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 REASON FOR ADMISSION: This patient with a long history of bipolar 1 disorder starting in his late teens, punctuated mostly with severe manic episodes, had his 1st severe depressive episode this year, which proved to be treatment resistant and required acute ECT. He was doing overall much better, but attempted to go back to work full-time and his recovery proved to be tenuous as he partially relapsed with increase in some vegetative symptoms, hopelessness, and even some suicidal rumination prompting this admission. He has been compliant with medications, including Vraylar, Lamictal and lithium, and has only had some side effects with the lithium in the form of head and hand tremor. There is no substance use that could have contributed to this relapse, nor any change in medical status. ROUTINE PHYSICAL EXAM: Performed by Jeremiah Ray, which revealed: 1. Mental health issue with bipolar depression. 2. Weight gain, possibly related to depression. Consider avoiding medications which could cause further weight gain. However, his psychosocial stabilization is 1st priority. 3. Snoring and crowded airway. 4. At risk for obstructive sleep apnea. Advised sleep study after discharge. 5. Tobacco dependence. Encouraged smoking cessation. ROUTINE LAB WORK: Patient's CBC revealed elevated hematocrit of 53.7 (which could speak to obstructive sleep apnea). His white count was elevated at 11.4, but this is common with lithium. Bio Chem profile was normal including normal creatinine. TSH was normal at 1.55. Urine toxicology was negative. His lithium level was 0.4, but he had skipped the dose. Therefore, this is artificially low. His lamotrigine level was low at 2.3 reflective of his dose of 200 mg. HOSPITAL COURSE: The patient gave his consent to restart a brief acute course of bilateral ECT given this partial relapse of symptoms despite any other precipitating events except for the mild stressor of attempting to return to work. The remote mortgage underwriter provided the patient and psychoeducation about how common it is during this initial phase of the maintenance period after acute ECT to have periodic relapses, which should be addressed as we are by either increasing ECT frequency or addressing it with medications. We discussed doing both. He is amenable to increasing his lamotrigine dose given a low level of a medication that arguably has its best benefit for bipolar depression itself. But, by the same token, he has dealt with some uncomfortable side effects with lithium at 1200 mg and wishes to reduce that dose. We will reduce it to 900 mg and give it all at h.s. so he sleeps through the Cmax of the medication, which should reduce daytime tremor issues. The patient had a robust response to the 3 acute ECT treatments that we did and feels positive, hopeful, future oriented , and bright. His sleep is good, but he also has more energy. Appetite is fair to good. 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 I will provide a note if need be. DISCHARGE MEDICATIONS: Vraylar 3 mg p.o. at bedtime, vitamin D3 1000 units p.o. daily, lamotrigine 400 mg p.o. at bedtime, lithium carbonate 900 mg p.o. at bedtime, Seroquel 50 mg p.o. nightly p.r.n. insomnia. DISPOSITION: The patient is to return home to his and family. I recommend that he not drive for at least the next 4 days given some mild impact of 3 acute ECT treatments. Our plan will be to schedule his next maintenance treatment in about 10 days. He is to consider restarting work, but only on a part-time basis. He understands the rationale for increasing Lamictal to 400 mg at bedtime and decreasing lithium to 900 mg. all his medications now can be taken at bedtime, which should help compliance. I recommend that his hold onto and dispense all his medications for the next 2 weeks until we are certain that he is remaining stable and euthymic and without suicidal ideation. Dr. Ray recommends that he follow up with primary care doc about being evaluated with a sleep study for obstructive sleep apnea given his airway and increased hematocrit. DISCHARGE DIAGNOSES: [place] I: Bipolar 1 disorder, depressed, severe, with possible mixed features. [place] II: Deferred. [place] III: History of low vitamin D and back pain, rule out obstructive sleep apnea. [place] IV: Moderate. [place]augan V: 50. /[id number]/MODL Eduard WT, 06/18/17, meri BELLAMY
[2017-06-18] MEDS ORDERED: NS 1,000 ML IV PRN (10:32)
[2017-06-18] MEDS ORDERED: HYDROCODONE/APAP 5/325 TAB PO PRN (10:32)
[2017-06-18] MEDS ORDERED: NALOXONE HCL 0.4 MG/ML INJ IVP PRN (10:32)
[2017-06-18] MEDS ORDERED: CITRIC ACID/SODIUM CITRATE 30 ML UDCUP PO PRN (10:32)
[2017-06-18] MEDS ORDERED: ONDANSETRON DISINTEGRATING 4 MG TAB PO PRN (10:32)
[2017-06-18] MEDS ORDERED: CITRIC ACID/SODIUM CITRATE 30 ML UDCUP ONE (10:38)
[2017-06-18] MEDS ORDERED: ONDANSETRON DISINTEGRATING 4 MG TAB ONE (10:38)
--- NOTE | 2017-06-18 10:58 | PDANEPAE ---
ECT Pre Anesthetic Evaluation Allergies/Adverse Reactions: No Known Allergies Allergy (Unverified 02/23/17 18:29) Patient ID confirmed: Yes H&P reviewed: Yes Pre-anesthetic history reviewed: Yes Heart: regular rate and rhythym, no murmur, rub, or gallop Lungs: no respiratory distress, clear to auscultation Mallampati Score: Class 3 ASA Status: I Home Medications: Cariprazine HCl [Vraylar] 3 mg PO HS 02/25/17 [Last Taken 06/12/17] Cholecalciferol Vit D3 [Vitamin D3 (*)] 1,000 units PO DAILY 06/13/17 [Last Taken Unknown] Medication review: completed Patient interviewed: Yes Patient examined: Yes Anesthetic plan discussed with patient: Yes Anesthetic risks discussed with patient: Yes ECT Pre-Anesthetic History - Height & Weight Height: 190.5 cm Weight: 95.254 kg BMI: 26.25 - Anesthesia History Hx Anesthesia Complications (with details): None Family Hx Anesthesia Complications: None - Tobacco/Alcohol/Drug Use Smoking Status: Current every day smoker Hx Drug/Substance Abuse: No Alcohol Use: No - Prior Surgeries/Hospitalizations Prior Surgeries: [place] teeth removed Prior Medical Hospitalizations: Suicide attempts 02/2017 - Pulmonary History ECT Hx Asthma: No Hx Abnormal Chest X-Ray: No Hx Oxygen in Use at Home: No - Cardiovascular History Hx Hypertension: No Currently Uses Hypertension Medication: No Hx Arrhythmias: No Hx Palpitations: No Hx Chest Pain: No Hx Coronary Artery / Peripheral Vascular Disease: No Hx Blood Clot: No - Neurologic History Hx Cerebrovascular Accident: No Hx CT Scan Or MRI Of The Brain: No Hx Epilepsy, Convulsions, Seizures, Or Blackouts: No Hx Frequent Or Severe Headaches: No Hx Numbness: No Hx Neurologic Disorder: No - Dental History Current Dental Issues: None - Endocrine History Hx Diabetes: No Current Daily Insulin Injections: No Hx Thyroid Problems: No - Renal/Urologic History Hx Renal Disorders: No Hx Urinary Tract Problems: No - Liver History Hx Hepatic Disorders: No - Cancer History Hx Cancer: No - Hematology History Hx Unexplained Bleeding Of Any Type: No Hx Ease Of Bruising: No Hx Anemia: No - Gastrointestinal History Hx Gastroesophogeal Reflux Disease: No Hx Ulcers: No Hx Hiatal Hernia: No Hx Difficulty Swallowing: No - Musculoskeletal Hisory Hx Chronic Pain: No Hx Arthritis: No - Opthalmic History Hx Glaucoma: No Visual Assistive Devices: Contacts, Glasses Hx Opthalmic Disorders: No - Other Health History Physical Disabililty: No Recent Cough, Cold, or Fever: No Significant Weight Loss In The Last 4 Months: No Possible the Patient Might be : No
--- NOTE | 2017-06-18 11:05 | PDECTPN ---
ECT Progress Note Patient Problems: Problems Problem Status Onset Code Severe major depression Acute F32.2 Suicidal ideation Acute R45.851 Bipolar 1 disorder, depressed, severe Acute F31.4 Date: 06/18/17 Treatment#: 26 ECT provider: Allan Stauffer Anesthesia: Yan Ventura Stimulus dose (%): 100 Pulse width: 0.5 ECT EMG (sec): 19 ECT EEG (sec): 57 ECT treatment type: bilateral QIDS-SR Total Score: 5 QIDS-SR Question #12 Score: 0 MMSE Total Score (Max = 21): 21 Patient refused QIDS-SR & MMSE: No Next ECT date: 06/28/17 Next ECT time: 10:00 O/P psychiatrist follow up with DrKimmie: Sophie Martínez O/P psychiatrist follow up: direct communication, phone, voice message Home medications: Cariprazine HCl [Vraylar] 3 mg PO HS 02/25/17 [Last Taken 06/12/17] Cholecalciferol Vit D3 [Vitamin D3 (*)] 1,000 units PO DAILY 06/13/17 [Last Taken Unknown] Medication review: completed Current treatment plan: acute phase Treatment plan frequency: 1 time per week ECT narrative: Please see discharge summary just dictated. Pt greatly improved
[2017-06-18 12:10] VITALS: RESP 12
[2017-06-18 14:55] VITALS: BP 96/55; PULSE 55; TEMP 97.7; O2SAT 96
[2017-06-18] MEDS ORDERED: lamoTRIgine 100 MG TAB PO SCH (21:00)
[2017-06-18] MEDS ORDERED: LITHIUM CARBONATE 300 MG CAP PO SCH (21:00)
[2017-06-21] MEDS ORDERED: CITRIC ACID/SODIUM CITRATE 30 ML UDCUP PO PRN (04:49)
[2017-06-21] MEDS ORDERED: NS 1,000 ML IV PRN (04:49)
[2017-06-21] MEDS ORDERED: ONDANSETRON DISINTEGRATING 4 MG TAB PO PRN (04:49)
== END 2017-06-18 16:10 | disposition home or self-care (01) | DRG 885 ==
LOC: BBEH 17:00
PROVIDERS: ADMIT Psychiatry & Neurology Psychiatry; ATTEND Psychiatry & Neurology Psychiatry
PROC: GZB2ZZZ Electroconvulsive Therapy, Bilateral-Single Seizure (ICD-10-PCS; principal; 2017-06-14)
DX: F31.5 Bipolar disorder, current episode depressed, severe, with psychotic features (principal); R45.851 Suicidal ideations; R25.1 Tremor, unspecified; T43.595A Adverse effect of other antipsychotics and neuroleptics, initial encounter; F17.210 Nicotine dependence, cigarettes, uncomplicated; R06.83 Snoring; G47.33 Obstructive sleep apnea (adult) (pediatric); Z91.5 Personal history of self-harm
CPT/HCPCS: 80175-90; 80307; G0480; J0330; J1885; J2250; J2405; J2704; J3010